=== PATIENT | female | born 1950 | race Caucasian/White ===

== ENCOUNTER 2016-12-31 12:12 | Outpatient (CLI) | payer MEDICARE, OTHER | END 2016-12-31 12:13 | disposition critical access hospital (66) | DX: R06.02 Shortness of breath (principal); R53.1 Weakness | CPT/HCPCS: A0425; A0429 ==

== ENCOUNTER 2016-12-31 12:25 | Inpatient (IN) | payer MEDICARE, OTHER ==
[2016-12-31 13:04] LABS: BASOPHILS # (AUTO) 0.2 10^3/uL (0.0-0.1); EOSINOPHILS # (AUTO) 0.4 10^3/uL (0.0-0.7); EOSINOPHILS % (AUTO) 2.6 %; HCT - HEMATOCRIT 37.4 % (37.0-47.0); HGB - HEMOGLOBIN 11.6 g/dL (12.0-16.0); LYMPHOCYTES % (AUTO) 6.4 %; MEAN CORPUSCULAR HEMOGLOBIN 21.6 pg (27.0-31.0); MEAN CORPUSCULAR HGB CONC 30.9 g/dL (32.0-36.0); MEAN CORPUSCULAR VOLUME 70.1 fL (81.0-99.0); MEAN PLATELET VOLUME 7.8 fL (7.9-10.8); MONOCYTES # (AUTO) 0.7 10^3/uL (0.0-1.0); MONOCYTES % (AUTO) 4.5 %; NEUTROPHILS # (AUTO) 13.7 10^3/uL (1.5-6.6); NEUTROPHILS % (AUTO) 85.5 %; RED BLOOD COUNT 5.34 10^6/uL (4.20-5.40); RED CELL DISTRIBUTION WIDTH 23.8 % (12.0-15.0)
[2016-12-31 13:15] LABS: BILIRUBIN,TOTAL 0.9 mg/dL (0.2-1.0); CALCIUM 9.4 mg/dL (8.5-10.3); CREATININE 1.2 mg/dL (0.4-1.0); POTASSIUM 3.9 mmol/L (3.5-5.0); TOTAL PROTEIN 7.6 g/dL (6.7-8.2)
[2016-12-31 13:29] LABS: PLATELET ESTIMATE, MANUAL NORMAL (130-450,000) (NORMAL); PLATELET MORPHOLOGY A (NORMAL)
--- NOTE | 2016-12-31 13:37 | ED Physician Documentation ---
PD HPI URI - Stated complaint Stated Complaint: WEAKNESS - Chief complaint Chief Complaint: General - History obtained from History obtained from: Patient, Friend - History of Present Illness Timing - onset: How many weeks ago (2) Timing duration: Weeks (2) Timing details: Gradual onset Associated symptoms: Fever, Chills, Nasal congestion, Rhinorrhea, Dry cough, Dyspnea. No: Sore throat, Swollen nodes, Hemoptysis, Chest pain Contributing factors: Sick contact, COPD / asthma Improves by: Rest Worsened by: Activity, Breathing Similar symptoms before: No diagnosis Recently seen: Clinic (seen in clinic yesterday, [facility]) Review of Systems Ten Systems: 10 systems reviewed and negative Constitutional: reports: Fever, Chills Nose: reports: Rhinorrhea / runny nose, Congestion Throat: denies: Sore throat Cardiac: denies: Chest pain / pressure Respiratory: reports: Dyspnea, Cough. denies: Hemoptysis, Wheezing GI: denies: Abdominal Pain, Nausea, Vomiting, Diarrhea Skin: denies: Rash Musculoskeletal: denies: Neck pain, Back pain Neurologic: denies: Focal weakness, Numbness, Headache PD PAST MEDICAL HISTORY - Past Medical History Past Medical History: Yes Respiratory: Asthma Neuro: Multiple sclerosis Endocrine/Autoimmune: Other - Past Surgical History Past Surgical History: No - Present Medications Home Medications: Ambulatory Orders Medication Instructions Recorded Confirmed Allopurinol 300 mg PO DAILY 12/31/16 12/31/16 Dexlansoprazole [Dexilant] 60 mg PO DAILY 12/31/16 12/31/16 Escitalopram Oxalate [Lexapro] 20 mg PO DAILY 12/31/16 12/31/16 Fluticasone/Salmeterol [Advair 1 each IH BID 12/31/16 12/31/16 250-50 Diskus] Fluticasone/Salmeterol [Advair 1 puffs INH BID 12/31/16 12/31/16 250-50 Diskus] Linaclotide [Linzess] 145 mcg PO DAILY 12/31/16 12/31/16 Montelukast [Singulair] 10 mg PO QPM 12/31/16 12/31/16 Naratriptan HCl [Amerge] 2.5 mg PO ONCE PRN 12/31/16 12/31/16 Tolterodine Tartrate [Tolterodine 4 mg PO DAILY 12/31/16 12/31/16 Tartrate ER] - Allergies Allergies/Adverse Reactions: Allergies Allergy/AdvReac Type Severity Reaction Status Date / Time erythromycin base Allergy Unknown Verified 12/31/16 16:06 lidocaine Allergy Unknown Verified 12/31/16 16:02 NSAIDS (Non-Steroidal Allergy Unknown Verified 12/31/16 16:02 Anti-Inflamma orphenadrine Allergy Unknown Verified 12/31/16 16:02 Penicillins Allergy Edema Verified 12/31/16 12:33 Sulfa (Sulfonamide Allergy Unknown Verified 12/31/16 16:02 Antibiotics) - Social History Does the pt smoke?: No Smoking Status: Never smoker Does the pt drink ETOH?: No Does the pt have substance abuse?: No - Immunizations Immunizations: TDAP >10years/unknown - POLST Patient has POLST: No PD ED PE NORMAL - Vitals Vital signs reviewed: Yes - General General: Alert and oriented X 3, No acute distress - HEENT HEENT: PERRL, Ears normal, Moist mucous membranes, Pharynx benign - Neck Neck: Supple, no meningeal sign - Cardiac Cardiac: RRR - Respiratory Respiratory: No respiratory distress, Other (rhonchi B) - Abdomen Abdomen: Soft, Non tender, Non distended - Derm Derm: Warm and dry - Extremities Extremities: No edema, No calf tenderness / cord - Neuro Neuro: Alert and oriented X 3 - Psych Psych: Normal mood, Normal affect Results - Vitals Vitals: Vital Signs - 24 hr 12/31/16 12/31/16 12:26 13:00 Temperature 39.4 C H 39.3 C H Heart Rate 97 Heart Rate [ 96 Brachial] Respiratory 16 16 Rate Blood Pressure 122/40 L Blood Pressure 110/65 [Right Brachial artery] O2 Saturation 97 96 Oxygen O2 Source Nasal cannula - Labs Labs: Laboratory Tests 12/31/16 12/31/16 12/31/16 12:48 12:48 12:48 WBC 16.0 H RBC 5.34 Hgb 11.6 L Hct 37.4 MCV 70.1 L MCH 21.6 L MCHC 30.9 L RDW 23.8 H Plt Count 452 H MPV 7.8 L Neut # 13.7 H Lymph # 1.0 L Divide # 0.7 Eos # 0.4 Baso # 0.2 H Absolute Nucleated RBC 0.00 Nucleated RBCs 0.0 Manual Slide Review Indicated Platelet Estimate NORMAL (130-450,000) Platelet Morphology A RBC Morph Micro Appear 1+ OVALOCYTES Sodium 134 L Potassium 3.9 Chloride 97 L Carbon Dioxide 26 Anion Gap 11.0 BUN 8 Creatinine 1.2 H Estimated GFR (MDRD) 45 L Glucose 98 Lactic Acid 0.7 Calcium 9.4 Total Bilirubin 0.9 AST 20 ALT 13 Alkaline Phosphatase 69 Total Protein 7.6 Albumin 3.8 Globulin 3.8 Albumin/Globulin Ratio 1.0 Lipase 20 L - Rads (name of study) cxr Radiology: Prelim report reviewed, EMP read contemporaneously, See rad report ( Bibasilar infiltrates right worse than left) PD MEDICAL DECISION MAKING - ED course Complexity details: reviewed results, re-evaluated patient, considered differential, d/w patient, d/w family ED course: Patient is a 66-year-old female who presents to the emergency department with fever, coughing, hypoxia. Found to have bilateral pneumonia. Will place on IV antibiotics and admit the patient for further care. Discussed the case with Dr. Taylor, hospitalist who accepts. Patient is ill-appearing and did receive IV fluids here. This document was made in part using voice recognition software. While efforts are made to proofread this document, sound alike and grammatical errors may occur. Departure - Departure Disposition: 64 [facility] DC/Xfer Clinical Impression: Hypoxia Pneumonia Qualifiers: Pneumonia type: due to unspecified organism Laterality: right Lung location: lower lobe of lung Qualified Code(s): J18.1 - Lobar pneumonia, unspecified organism Condition: Stable Discharge Date/Time: 12/31/16 14:51
[2016-12-31] MEDS ORDERED: cefTRIAXone 1 GM in SODIUM CHLORIDE 0.9% MINIBAG 100 ML IV STA (13:38)
[2016-12-31] MEDS ORDERED: SODIUM CHLORIDE 0.9% 1,000 ML IV ONE ×2 (13:39)
[2016-12-31] MEDS ORDERED: AZITHROMYCIN INJ 500 MG in SODIUM CHLORIDE 0.9% 250 ML IV STA (13:39)
--- NOTE | 2016-12-31 13:46 | XRAY Preliminary Report ---
Exam: XR Chest 2 View PA/LAT IMPRESSION: Bibasilar infiltrates, right more so than left. [facility] SITE ID: [id number]
[2016-12-31] MEDS ORDERED: ONDANSETRON 4 MG/2 ML VIAL IVP PRN (13:54)
[2016-12-31] MEDS ORDERED: ZOLPIDEM 5 MG TABLET PO PRN (13:54)
[2016-12-31] MEDS ORDERED: PROCHLORPERAZINE 10 MG/2 ML VIAL IVP PRN (13:54)
[2016-12-31] MEDS ORDERED: PROMETHAZINE 25 MG/1 ML VIAL IM PRN (13:54)
[2016-12-31] MEDS ORDERED: ACETAMINOPHEN 325 MG TABLET PO STA (14:01)
--- NOTE | 2016-12-31 14:07 | XRAY Report ---
EXAM: CHEST RADIOGRAPHY EXAM DATE: 12/31/2016 01:20 PM. CLINICAL HISTORY: Cough, fever, generalized weakness for 2 weeks. COMPARISON: 04/09/2008. TECHNIQUE: 2 views. FINDINGS: Lungs/Pleura: Reticular-nodular infiltrates now seen in both anterior lung bases as well as within th e basilar segments of the right lower lobe. Normal lung volumes. No effusion, vascular congestion or pneumothorax. Mediastinum: Heart and mediastinal contours are unremarkable. Other: Prior right breast surgery. IMPRESSION: Bibasilar infiltrates, right more so than left. [facility] Referring Provider Line: [phone] SITE ID: [id number]
--- NOTE | 2016-12-31 15:31 | HISTORY & PHYSICAL EXAMINATION ---
Chief Complaint - Chief Complaint Chief Complaint: Generalized Weakness History of Present Illness - Admitted From Admitted From:: Emergency Department - History Obtained From Records Reviewed: Yes History obtained from: Patient and her sister Exam Limitations: None - History of Present Illness HPI Comment/Other: Patient is a 66-year-old female with a past medical history significant for polycythemia there, asthma, paresthesias with possible multiple sclerosis, gout , depression and migraines who presents to the emergency department with a chief complaint of generalized weakness. The patient has not been feeling well for over 2 weeks now. She states that she her symptoms first started with generalized weakness and fatigue. She states that over the last 10 days she's been having cough and increasing shortness of breath. She states that she did go to the emergency department at [facility] one week ago and was told that she had sinusitis. She was not given any antibiotics and since returning home has become increasingly weak to the point where she is not even able to get out of her bed in the morning. She also admits to feeling warm although she did not check her temperature to see if she had a fever at home. Her sister states that she has had very poor appetite and has not been eating the last couple of days. The patient otherwise denies any headaches blurred vision runny nose sore throat nasal congestion or chest pain. On presentation to the emergency department the patient was febrile with a temperature of 39.4, she was hypoxic with O2 sat below 88% requiring 4 L of oxygen, she was also tachycardic with heart rate in the 120s and and lab work revealed a leukocytosis of 16,000 with acute renal failure. Patient's chest x- ray revealed bibasilar infiltrates right more so than left. Patient was admitted to the hospital for sepsis secondary to community acquired pneumonia. Review of Systems - Constitutional Constitutional: reports: Fatigue, Fever, Malaise, Weakness, Poor appetite. denies: Chills, Diaphoresis, Night sweats, Weight gain, Weight loss - Eyes Eyes: denies: Pain, Irritation, Amaurosis, Blurred vision, Spots in vision, Field loss, Vision loss, Dipolpia, Corrective lenses, Other - Ears, Nose & Throat Ears, Nose & Throat: denies: Ear pain, Hearing loss, Hearing aids, Tinnitus, Vertigo, Nasal pain, Nasal discharge, Nosebleeds, Nasal obstruction, Nasal congestion, Postnasal drainage, Dentures, Sore throat, Hoarseness, Mouth lesions , Bleeding gums, Dental decay, Dental pain, Other - Cardiovascular Cariovascular: reports: Exertional dyspnea. denies: Irregular heart rate, Palpitations, Chest pain, Edema, Lightheadedness, Syncope, Orthopnea - Respiratory Respiratory: reports: Cough, Sputum production, Wheezing, SOB with exertion. denies: Snoring, Hemoptysis, Orthopnea, SOB at rest - Gastrointestinal Gastrointestinal: denies: Abdominal pain, Abdominal distention, Constipation, Diarrhea, Black stools, Nausea, Vomiting, Coffee grounds emesis - Genitourinary Genitourinary: denies: Dysuria, Frequency, Urgency, Hematuria, Incontinence - Musculoskeletal Musculoskeletal: denies: Muscle pain, Back pain, Muscle aches, Stiffness, Limited range of motion, Muscle weakness - Integumentary Integumentary: denies: Rash, Pruritis, Lesions, Dryness - Neurological Neurological: reports: General weakness, Numbness (fingers and feet). denies: Focal weakness, Headache, Dizziness, Memory problems, Abnormal gait, Seizures - Psychiatric Psychiatric: reports: Depression. denies: Anxiety, Suicidal, Delusions - Endocrine Endocrine: denies: Polyuria, Polydypsia, Polyphagia, Intolerance to cold - Hematologic/Lymphatic Hematologic/Lymphatic: denies: Anemia, Bruising, Petechiae History - Past Medical History Respiratory: reports: Asthma Neuro: reports: Multiple sclerosis (parasthesias being worked up for MS), Other (Migraines) Endocrine/Autoimmune: reports: Other : reports: Incontinence Psych: reports: Depression Musculoskeletal: reports: Gout MRSA Hx?: No Other Past Medical History: Polycythema Vera - Family & Social History Family History: Mother: Cancer (Breast Cancer), Father: [place], Sister: Cancer Living arrangement: At home Living Situation: With family Social History Notes: Patient lives in [place] with her sister. She is . She has one daughter who lives in [place] and 2 grandkids. - Substance History Use: Uses substance without health or social issues: NONE Abuse: Recurrent use of substance despite neg consequences: NONE Dependence: Experiences withdrawal or developed tolerances: NONE - POLST Patient has POLST: No POLST Status: Full Code Meds/Allgy - Home Medications Home Medications: Ambulatory Orders Medication Instructions Recorded Confirmed Allopurinol 300 mg PO DAILY 12/31/16 12/31/16 Allopurinol 300 mg PO DAILY 12/31/16 12/31/16 Dexlansoprazole [Dexilant] 60 mg PO DAILY 12/31/16 12/31/16 Dexlansoprazole [Dexilant] 60 mg PO DAILY 12/31/16 12/31/16 Escitalopram Oxalate [Lexapro] 20 mg PO DAILY 12/31/16 12/31/16 Escitalopram [Lexapro] 20 mg PO DAILY 12/31/16 12/31/16 Fluticasone/Salmeterol [Advair 1 each IH BID 12/31/16 12/31/16 250-50 Diskus] Fluticasone/Salmeterol [Advair 1 puffs INH BID 12/31/16 12/31/16 250-50 Diskus] Linaclotide [Linzess] 145 mcg PO DAILY 12/31/16 12/31/16 Montelukast [Singulair] 10 mg PO QPM 12/31/16 12/31/16 Naratriptan HCl [Amerge] 2.5 mg PO BID PRN MDD 2 tabs 12/31/16 12/31/16 Nystatin/Triamcin 15 gm TP BID 12/31/16 12/31/16 [Nystatin-Triamcinolone Cream] Tolterodine Tartrate [Tolterodine 4 mg PO DAILY 12/31/16 12/31/16 Tartrate ER] - Allergies Allergies/Adverse Reactions: Allergies Allergy/AdvReac Type Severity Reaction Status Date / Time Penicillins Allergy Edema Verified 12/31/16 12:33 sulfamethoxazole Allergy Unknown Verified 12/31/16 12:33 [From ] trimethoprim [From ] Allergy Unknown Verified 12/31/16 12:33 Exam - Vital Signs Reviewed Vital Signs: Yes Vital Signs: Vital Signs x48h Temp Pulse Resp BP Pulse Ox 12/31/16 14:43 38.3 C H 92 18 127/52 L 92 - Physical Exam General Appearance: positive: Moderate distress (Appears toxic looking, very weak, can barely talk), Other (very drowsy) Eyes Bilateral: positive: Normal inspection, PERRL, EOMI, No lid inflammation, Conjunctivae nml, No scleral icterus ENT: positive: ENT inspection nml, Pharynx nml, Dry mucous membranes. negative : Purulent nasal drainage, Pharyngeal erythema, Oral lesions Neck: positive: Nml inspection, Thyroid nml, No JVD, Trachea midline. negative : Thyromegaly, Lymphadenopathy (R), Lymphadenopathy (L), Stiff neck, Carotid bruit Respiratory: positive: Chest non-tender, Wheezes (scattered), Rhonchi (bases bilateral) Cardiovascular: positive: No murmur, No gallop, Tachycardia Peripheral Pulses: positive: 2+ Abdomen: positive: Non-tender, No organomegaly, Nml bowel sounds, No distention. negative: Guarding, Rebound Back: positive: Nml inspection. negative: CVA tenderness (R), CVA tenderness (L ) Skin: positive: Color nml, No rash, Warm Extremities: positive: Non-tender, Full ROM, Nml appearance, No pedal edema Neurologic/Psychiatric: positive: Oriented x3, CN's nml (2-12), Motor nml, Sensation nml, Depressed mood/affect, Other (Generalized Weakness) Conclusion/Plan - Problem List (1) Sepsis Conclusion/Plan: Presented with fever over 39, tachycardia of 120s, hypoxia, leukocytosis 16K and renal insufficiency Lactate normal and BP stable Patients source is likely pneumonia CXR showed bibasilar infiltrates worse on the right Plan: IVFs IV abx: Ceftriaxone and Azithromycin for CAP coverage Blood cx x 2 Monitor closely on Med/Surg (2) CAP (community acquired pneumonia) Conclusion/Plan: Presented with generalized weakness, cough, shortness of air and had fever, leukocytosis and hypoxia CXR showed bibasilar pneumonia Plan: IV abx with ceftriaxone and azithromycin Wean O2 Duonebs prn Continue asthma meds Blood cx (3) BRANDT (acute kidney injury) Conclusion/Plan: Manager Foreign 1.3 on presentation No baseline customer service rep but appears dry and likely has pre-renal azotemia secondary to sepsis and poor PO intake Plan IVFs Avoid nephrotoxic agents Monitor customer service rep (4) Hyponatremia Conclusion/Plan: Hypovolemic hyponatremia likely secondary to infection and dehydration Given IVFs Monitor Na (5) Asthma Conclusion/Plan: Does not appear to be in exacerbation Hypoxic secondary to pneumonia Only mild wheezes Plan Duonebs prn ICS and LABA nebs O2 support Abx No need for steroids at this point Continue home singulair dose (6) Depression Conclusion/Plan: Continue lexapro Depressed but not suicidal (7) Prophylactic use of low molecular weight heparin for venous thromboembolism Conclusion/Plan: On lovenox daily - Lab Results Lab results reviewed: Yes Fish Bones: 12/31/16 12:48 12/31/16 12:48 - Diagnostic Imaging Results Diagnostic Imaging Results: positive: Final report reviewed - EKG Results EKG Interpreted Independently: Yes Issues/Core Measures - Anticipated LOS Anticipated Stay Length: 2 or more midnights - DVT/VTE - Prophylaxis VTE/DVT Prophylaxis med ordered at admit?: Yes
[2016-12-31] MEDS: SODIUM CHLORIDE FLUSH 0.9% 10 ML SYRINGE IVP SCH (15:36)
[2016-12-31] MEDS: AZITHROMYCIN INJ 500 MG in SODIUM CHLORIDE 0.9% 250 ML IV SCH (16:09)
[2016-12-31] MEDS: cefTRIAXone 2 GM in SODIUM CHLORIDE 0.9% MINIBAG 100 ML IV SCH (17:16)
[2016-12-31] MEDS: SODIUM CHLORIDE 0.9% 1,000 ML IV SCH (17:16)
[2016-12-31] MEDS: SACCHAROMYCES BOULARDII 250 MG CAPSULE PO SCH (17:18)
[2016-12-31] MEDS: BUDESONIDE 0.5 MG/2 ML NEB INH SCH (20:00)
[2016-12-31] MEDS: FORMOTEROL FUMARATE NEB 20 MCG/2 ML INH SCH (20:00)
[2016-12-31] MEDS: ACETAMINOPHEN 325 MG TABLET PO PRN (21:38)
[2016-12-31] MEDS: MONTELUKAST 10 MG TABLET PO SCH (21:38)
[2017-01-01] MEDS: ACETAMINOPHEN 325 MG TABLET PO PRN (04:07)
[2017-01-01] MEDS: SODIUM CHLORIDE 0.9% 1,000 ML IV SCH ×3 (04:09→21:41)
[2017-01-01] MEDS: oxyCODONE 5 MG TABLET PO PRN ×3 (04:11→18:25)
[2017-01-01 06:23] LABS: CALCIUM 8.4 mg/dL (8.5-10.3); CREATININE 0.8 mg/dL (0.4-1.0); POTASSIUM 3.5 mmol/L (3.5-5.0)
[2017-01-01 06:26] LABS: BASOPHILS # (AUTO) 0.2 10^3/uL (0.0-0.1); BASOPHILS % (AUTO) 1.2 %; EOSINOPHILS # (AUTO) 0.2 10^3/uL (0.0-0.7); EOSINOPHILS % (AUTO) 1.6 %; HCT - HEMATOCRIT 35.6 % (37.0-47.0); HGB - HEMOGLOBIN 10.5 g/dL (12.0-16.0); LYMPHOCYTES % (AUTO) 6.4 %; MEAN CORPUSCULAR HEMOGLOBIN 21.4 pg (27.0-31.0); MEAN CORPUSCULAR HGB CONC 29.6 g/dL (32.0-36.0); MEAN CORPUSCULAR VOLUME 72.3 fL (81.0-99.0); MEAN PLATELET VOLUME 8.3 fL (7.9-10.8); MONOCYTES % (AUTO) 6.5 %; NEUTROPHILS # (AUTO) 12.8 10^3/uL (1.5-6.6); NEUTROPHILS % (AUTO) 84.3 %; NUCLEATED RED BLOOD CELLS AUTO 0.1 /100WBC; RED BLOOD COUNT 4.93 10^6/uL (4.20-5.40); RED CELL DISTRIBUTION WIDTH 23.6 % (12.0-15.0); UNCORRECTED WHITE BLOOD COUNT 15.2 x10^3/uL; WHITE BLOOD COUNT 15.2 x10^3/uL (4.8-10.8)
[2017-01-01] MEDS: SODIUM CHLORIDE FLUSH 0.9% 10 ML SYRINGE IVP SCH ×3 (06:37→21:32)
[2017-01-01 06:54] LABS: PLATELET ESTIMATE, MANUAL NORMAL (130-450,000) (NORMAL)
[2017-01-01] MEDS: PANTOPRAZOLE 40 MG TABLET PO SCH (07:27)
[2017-01-01] MEDS: ALLOPURINOL 100 MG TABLET PO SCH (08:29)
[2017-01-01] MEDS: TOLTERODINE LA 2 MG CAPSULE PO SCH (08:29)
[2017-01-01] MEDS: ESCITALOPRAM 10 MG TABLET PO SCH (08:29)
[2017-01-01] MEDS: SACCHAROMYCES BOULARDII 250 MG CAPSULE PO SCH ×2 (08:29→17:34)
[2017-01-01] MEDS: ENOXAPARIN 40 MG/0.4 ML SYRINGE SUBQ SCH (08:30)
[2017-01-01] MEDS: POLYETHYLENE GLYCOL 3350 17 GM PACKET PO SCH (08:30)
[2017-01-01] MEDS: cefTRIAXone 2 GM in SODIUM CHLORIDE 0.9% MINIBAG 100 ML IV SCH (08:30)
[2017-01-01] MEDS ORDERED: IPRATROPIUM/ALBUTEROL 3 ML NEB INH ONE (10:00)
[2017-01-01] MEDS: IPRATROPIUM/ALBUTEROL 3 ML NEB INH SCH ×3 (10:12→20:40)
[2017-01-01] MEDS: FORMOTEROL FUMARATE NEB 20 MCG/2 ML INH SCH ×2 (10:12→20:20)
[2017-01-01] MEDS: BUDESONIDE 0.5 MG/2 ML NEB INH SCH ×2 (10:12→20:20)
[2017-01-01] MEDS: AZITHROMYCIN INJ 500 MG in SODIUM CHLORIDE 0.9% 250 ML IV SCH (10:33)
[2017-01-01] MEDS: guaiFENesin 600 MG TABLET PO SCH ×2 (10:39→21:40)
[2017-01-01] MEDS: methylPREDNISolone SUCCINATE 40 MG/ML VIAL IVP SCH ×2 (13:47→21:40)
[2017-01-01] MEDS ORDERED: NARATRIPTAN HCL 2.5 MG PO PRN (17:00)
--- NOTE | 2017-01-01 17:37 | PROVIDER PROGRESS NOTE ---
Assessment/Plan - Problem List (1) Sepsis Assessment/Plan: Presented with fever over 39, tachycardia of 120s, hypoxia, leukocytosis 16K and renal insufficiency Lactate normal and BP stable Patients source is likely pneumonia CXR showed bibasilar infiltrates worse on the right Patient given IVFs and started on IV abx with ceftriaxone and Azithromycin HR improved, fevers subsided, BP stable Resolving (2) CAP (community acquired pneumonia) Conclusion/Plan: Presented with generalized weakness, cough, shortness of air and had fever, leukocytosis and hypoxia CXR showed bibasilar pneumonia Day 2 of Ceftriaxone and Azithro Still on 3L of O2 Lungs sound worse with diffuse wheezing likely asthma exacerbation along with pneumonia WBC mildly improved Wean O2 Improving slowly (3) BRANDT (acute kidney injury) 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 IVFs and 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 engineer improved to 0.8 Resolved (4) Hyponatremia Conclusion/Plan: Hypovolemic hyponatremia likely secondary to infection and dehydration Given IVFs Resolved (5) Asthma Exacerbation Conclusion/Plan: Initially appeared to have only pneumonia but today with diffuse wheezing and still on 3L of O2 appears to be have asthma exacerbation Duonebs ATC x24 hours and prn Start IV Solumedrol TID (6) Depression Conclusion/Plan: Continue lexapro Stable (7) Prophylactic use of low molecular weight heparin for venous thromboembolism Conclusion/Plan: On lovenox daily - Current Meds Current Meds: Current Medications Generic Name Dose Route Start Last Admin Trade Name Freq PRN Reason Stop Dose Admin Acetaminophen 650 mg 12/31/16 13:54 01/01/17 04:07 Tylenol PO 650 mg Q4HR PRN Administration Pain 1 to 4 Albuterol/Ipratropium 3 ml 01/01/17 11:00 01/01/17 14:48 Duoneb INH 01/02/17 11:00 3 ml RTQID ELENA Administration Allopurinol 300 mg 01/01/17 09:00 01/01/17 08:29 Zyloprim PO 300 mg DAILY ELENA Administration Budesonide 0.5 mg 12/31/16 19:00 01/01/17 10:12 Pulmicort INH 0.5 mg RTBID ELENA Administration Enoxaparin Sodium 40 mg 01/01/17 09:00 01/01/17 08:30 Lovenox SUBQ 40 mg DAILY ELENA Administration Escitalopram Oxalate 20 mg 01/01/17 09:00 01/01/17 08:29 Lexapro PO 20 mg DAILY ELENA Administration Formoterol Fumarate 20 mcg 12/31/16 19:00 01/01/17 10:12 Perforomist INH 20 mcg RTBID ELENA Administration Guaifenesin 600 mg 01/01/17 10:00 01/01/17 10:39 Mucinex PO 600 mg BID ELENA Administration Sodium Chloride 1,000 mls @ 100 mls/hr 12/31/16 16:00 01/01/17 15:42 Normal Saline 0.9% IV 100 mls/hr .Q10H ELENA Administration Azithromycin 500 mg/ Sodium 250 mls @ 250 mls/hr 12/31/16 16:00 01/01/17 10:33 Chloride IV 250 mls/hr DAILY@1000 ELENA Administration Ceftriaxone Sodium 2 gm/ 100 mls @ 200 mls/hr 12/31/16 17:00 01/01/17 08:30 Sodium Chloride IV 200 mls/hr DAILY ELENA Administration Methylprednisolone 40 mg 01/01/17 14:00 01/01/17 13:47 Solu-Medrol (40mg Vial) IVP 40 mg TID [facility] Administration Montelukast Sodium 10 mg 12/31/16 21:00 12/31/16 21:38 Singulair PO 10 mg QPM ELENA Administration Oxycodone HCl 5 mg 12/31/16 13:54 01/01/17 13:47 Roxicodone PO 5 mg Q4HR PRN Administration Pain 5 to 7 Oxycodone HCl 10 mg 12/31/16 13:54 01/01/17 04:11 Roxicodone PO 10 mg Q4HR PRN Administration Pain 8 to 10 Pantoprazole Sodium 40 mg 01/01/17 07:00 01/01/17 07:27 Protonix PO 40 mg QDAC [facility] Administration Polyethylene Glycol 17 gm 01/01/17 09:00 01/01/17 08:30 Miralax PO Not Given DAILY [facility] Saccharomyces Boulardii 250 mg 12/31/16 17:00 01/01/17 08:29 Florastor PO 250 mg BIDWM ELENA Administration Sodium Chloride 10 ml 12/31/16 22:00 01/01/17 13:48 Normal Saline Flush 0.9% IVP Not Given Q8HR ELENA Tolterodine Tartrate 4 mg 01/01/17 09:00 01/01/17 08:29 Detrol La PO 4 mg DAILY ELENA Administration - Lab Result Lab results reviewed: Yes Fish Bone Diagrams: 01/01/17 05:54 01/01/17 05:54 - EKG Results EKG Interpreted Independently: Yes - Diagnostic Imaging Results Diagnostic Imaging Results: positive: Final report reviewed - Additional Planning My Orders: My Active Orders 12/31/16 19:00 Budesonide [Pulmicort] 0.5 mg INH RTBID Formoterol Fumarate [Perforomist] 20 mcg INH RTBID 12/31/16 21:00 Montelukast [Singulair] 10 mg PO QPM 01/01/17 09:00 Allopurinol [Zyloprim] 300 mg PO DAILY Escitalopram [Lexapro] 20 mg PO DAILY Tolterodine [Detrol LA] 4 mg PO DAILY 01/01/17 09:11 Resp Teach Nebulizer/MDI [RC] .ONCE 01/01/17 09:55 guaiFENesin/CODEINE [Robitussin AC] 5 ml PO Q6HR PRN 01/01/17 10:00 guaiFENesin [Mucinex] 600 mg PO BID 01/01/17 11:00 Ipratropium/Albuterol [Duoneb] 3 ml INH RTQID 01/01/17 14:00 methylPREDNISolone SUCCINATE [SOLU-Medrol (40MG VIAL)] 40 mg IVP TID 01/01/17 17:00 Patient Own Med [Patient Own Medication] 1 each PO ONCE PRN Plan Discussed with:: Patient, Family (Sister) Time Spent: 31-60 minutes Subjective - Subjective Patient Reports: Feeling Better (Patient feels much better. She is much more alert and lucid. She states she walked to bathroom still short of breath and still requiring O2 but feels better overall. Still feels weak but improving. Denies any fevers overnight.) Nursing Reports: No Complaints Objective Vital Signs: Vital Signs - 24 hr 12/31/16 12/31/16 01/01/17 18:39 20:00 01:00 Temperature 37.2 C 37.4 C Heart Rate 80 Heart Rate [ 80 Brachial] Respiratory 16 17 Rate Blood Pressure 105/65 [Left Brachial artery] O2 Saturation 96 01/01/17 01/01/17 01/01/17 08:00 10:12 13:54 Temperature 36.7 C 37.4 C Heart Rate 97 Heart Rate [ 83 99 Brachial] Respiratory 18 18 20 Rate Blood Pressure 97/59 L 121/69 [Left Brachial artery] O2 Saturation 96 01/01/17 14:40 Temperature Heart Rate 109 H Heart Rate [ Brachial] Respiratory 20 Rate Blood Pressure [Left Brachial artery] O2 Saturation Oxygen O2 Source Nasal cannula I&O (Last 24 Hrs): Intake and Output Totals x24h 12/30/16 12/31/16 01/01/17 23:59 23:59 23:59 Intake Total 1293 4047 Output Total 1200 1100 Balance 93 2947 General: Alert, Oriented x3, Cooperative, No acute distress HEENT: Atraumatic, PERRLA, EOMI, Mucous membr. moist/pink Neck: Supple, No JVD, No thyromegaly, +2 carotid pulse wo bruit, No LAD Lymphatic: no adenopathy Neuro: Alert, Non Focal, CN 2-12 Grossly Intact, Oriented Times 3 Cardiovascular: Regular rate, Normal S1, Normal S2, No murmurs Respiratory: Chest non-tender, Wheezes (Diffuse expiratroy wheezes), Rhonchi ( Bases worse on the right) Abdomen: Normal bowel sounds, Soft, No tenderness, No hepatospenomegaly Extremities: No clubbing, No cyanosis, No edema, Normal pulses, No tenderness/ swelling Skin: No rashes, No breakdown, No significant lesion - Results Results: Laboratory Results WBC 15.2 x10^3/uL (4.8-10.8) H 01/01/17 05:54 RBC 4.93 10^6/uL (4.20-5.40) 01/01/17 05:54 Hgb 10.5 g/dL (12.0-16.0) L 01/01/17 05:54 Hct 35.6 % (37.0-47.0) L 01/01/17 05:54 MCV 72.3 fL (81.0-99.0) L 01/01/17 05:54 MCH 21.4 pg (27.0-31.0) L 01/01/17 05:54 MCHC 29.6 g/dL (32.0-36.0) L 01/01/17 05:54 RDW 23.6 % (12.0-15.0) H 01/01/17 05:54 Plt Count 451 10^3/uL (130-450) H 01/01/17 05:54 MPV 8.3 fL (7.9-10.8) 01/01/17 05:54 Neut # 12.8 10^3/uL (1.5-6.6) H 01/01/17 05:54 Lymph # 1.0 10^3/uL (1.5-3.5) L 01/01/17 05:54 [place] # 1.0 10^3/uL (0.0-1.0) 01/01/17 05:54 Eos # 0.2 10^3/uL (0.0-0.7) 01/01/17 05:54 Baso # 0.2 10^3/uL (0.0-0.1) H 01/01/17 05:54 Absolute Nucleated RBC 0.01 x10^3/uL 01/01/17 05:54 Nucleated RBCs 0.1 /100WBC 01/01/17 05:54 Manual Slide Review Indicated 01/01/17 05:54 Platelet Estimate NORMAL (130-450,000) (NORMAL) 01/01/17 05:54 Platelet Morphology A (NORMAL) 12/31/16 12:48 RBC Morph Micro Appear 1+ ANISOCYTOSIS (NORMAL) 1+ MACROCYTOSIS (NORMAL) 1+ OVALOCYTES (NORMAL) 12/31/16 12:48 RBC Morph Micro Appear 1+ ANISOCYTOSIS (NORMAL) 1+ MACROCYTOSIS (NORMAL) 1+ OVALOCYTES (NORMAL) 12/31/16 12:48 RBC Morph Micro Appear 2+ ANISOCYTOSIS (NORMAL) 1+ POLYCHROMASIA (NORMAL) 1 + OVALOCYTES (NORMAL) 1+ SCHISTOCYTES (NORMAL) 1+ TEARDROP CELLS (NORMAL) 01/01/17 05:54 RBC Morph Micro Appear 2+ ANISOCYTOSIS (NORMAL) 1+ POLYCHROMASIA (NORMAL) 1 + OVALOCYTES (NORMAL) 1+ SCHISTOCYTES (NORMAL) 1+ TEARDROP CELLS (NORMAL) 01/01/17 05:54 RBC Morph Micro Appear 2+ ANISOCYTOSIS (NORMAL) 1+ POLYCHROMASIA (NORMAL) 1 + OVALOCYTES (NORMAL) 1+ SCHISTOCYTES (NORMAL) 1+ TEARDROP CELLS (NORMAL) 01/01/17 05:54 RBC Morph Micro Appear 2+ ANISOCYTOSIS (NORMAL) 1+ POLYCHROMASIA (NORMAL) 1 + OVALOCYTES (NORMAL) 1+ SCHISTOCYTES (NORMAL) 1+ TEARDROP CELLS (NORMAL) 01/01/17 05:54 RBC Morph Micro Appear 2+ ANISOCYTOSIS (NORMAL) 1+ POLYCHROMASIA (NORMAL) 1 + OVALOCYTES (NORMAL) 1+ SCHISTOCYTES (NORMAL) 1+ TEARDROP CELLS (NORMAL) 01/01/17 05:54 Sodium 139 mmol/L (135-145) 01/01/17 05:54 Potassium 3.5 mmol/L (3.5-5.0) 01/01/17 05:54 Chloride 108 mmol/L (101-111) 01/01/17 05:54 Carbon Dioxide 25 mmol/L (21-32) 01/01/17 05:54 Anion Gap 6.0 (6-13) 01/01/17 05:54 BUN 8 mg/dL (6-20) 01/01/17 05:54 Creatinine 0.8 mg/dL (0.4-1.0) 01/01/17 05:54 Estimated GFR (MDRD) 71 (>89) L 01/01/17 05:54 Glucose 109 mg/dL (70-100) H 01/01/17 05:54 Lactic Acid 0.7 mmol/L (0.5-2.2) 12/31/16 12:48 Calcium 8.4 mg/dL (8.5-10.3) L 01/01/17 05:54 Total Bilirubin 0.9 mg/dL (0.2-1.0) 12/31/16 12:48 AST 20 IU/L (10-42) 12/31/16 12:48 ALT 13 IU/L (10-60) 12/31/16 12:48 Alkaline Phosphatase 69 IU/L (42-121) 12/31/16 12:48 Total Protein 7.6 g/dL (6.7-8.2) 12/31/16 12:48 Albumin 3.8 g/dL (3.2-5.5) 12/31/16 12:48 Globulin 3.8 g/dL (2.1-4.2) 12/31/16 12:48 Albumin/Globulin Ratio 1.0 (1.0-2.2) 12/31/16 12:48 Lipase 20 U/L (22-51) L 12/31/16 12:48
[2017-01-01] MEDS: HYDROXYUREA 500 MG CAPSULE PO SCH (20:10)
[2017-01-01] MEDS: SODIUM CHLORIDE FLUSH 0.9% 10 ML SYRINGE IVP PRN (21:40)
[2017-01-01] MEDS: MONTELUKAST 10 MG TABLET PO SCH (21:40)
[2017-01-02] MEDS: SODIUM CHLORIDE 0.9% 1,000 ML IV SCH ×3 (00:47→23:10)
[2017-01-02] MEDS: SODIUM CHLORIDE FLUSH 0.9% 10 ML SYRINGE IVP SCH ×3 (05:48→21:16)
[2017-01-02] MEDS: PANTOPRAZOLE 40 MG TABLET PO SCH (05:48)
[2017-01-02] MEDS: methylPREDNISolone SUCCINATE 40 MG/ML VIAL IVP SCH ×3 (05:48→21:15)
[2017-01-02 06:28] LABS: BASOPHILS # (AUTO) 0.1 10^3/uL (0.0-0.1); EOSINOPHILS % (AUTO) 0.3 %; HGB - HEMOGLOBIN 10.9 g/dL (12.0-16.0); LYMPHOCYTES % (AUTO) 6.6 %; MEAN CORPUSCULAR HEMOGLOBIN 20.9 pg (27.0-31.0); MEAN CORPUSCULAR HGB CONC 28.7 g/dL (32.0-36.0); MEAN CORPUSCULAR VOLUME 72.9 fL (81.0-99.0); MEAN PLATELET VOLUME 8.3 fL (7.9-10.8); MONOCYTES # (AUTO) 0.4 10^3/uL (0.0-1.0); MONOCYTES % (AUTO) 2.6 %; NEUTROPHILS # (AUTO) 13.1 10^3/uL (1.5-6.6); NEUTROPHILS % (AUTO) 89.5 %; RED BLOOD COUNT 5.22 10^6/uL (4.20-5.40); UNCORRECTED WHITE BLOOD COUNT 14.6 x10^3/uL; WHITE BLOOD COUNT 14.6 x10^3/uL (4.8-10.8)
[2017-01-02 06:34] LABS: CALCIUM 9.1 mg/dL (8.5-10.3); CREATININE 0.9 mg/dL (0.4-1.0); POTASSIUM 4.4 mmol/L (3.5-5.0)
[2017-01-02 06:43] LABS: RED CELL DISTRIBUTION WIDTH 24.5 % (12.0-15.0)
[2017-01-02] MEDS: FORMOTEROL FUMARATE NEB 20 MCG/2 ML INH SCH ×2 (07:21→20:01)
[2017-01-02] MEDS: BUDESONIDE 0.5 MG/2 ML NEB INH SCH ×2 (07:21→20:01)
[2017-01-02] MEDS: IPRATROPIUM/ALBUTEROL 3 ML NEB INH SCH ×2 (07:21→11:05)
[2017-01-02] MEDS: POLYETHYLENE GLYCOL 3350 17 GM PACKET PO SCH (08:21)
[2017-01-02] MEDS: ENOXAPARIN 40 MG/0.4 ML SYRINGE SUBQ SCH (08:22)
[2017-01-02] MEDS: guaiFENesin 600 MG TABLET PO SCH ×2 (08:22→21:14)
[2017-01-02] MEDS: cefTRIAXone 2 GM in SODIUM CHLORIDE 0.9% MINIBAG 100 ML IV SCH (08:22)
[2017-01-02] MEDS: ALLOPURINOL 100 MG TABLET PO SCH (08:22)
[2017-01-02] MEDS: SACCHAROMYCES BOULARDII 250 MG CAPSULE PO SCH ×2 (08:22→16:43)
[2017-01-02] MEDS: ESCITALOPRAM 10 MG TABLET PO SCH (08:23)
[2017-01-02] MEDS: TOLTERODINE LA 2 MG CAPSULE PO SCH (08:23)
[2017-01-02] MEDS: AZITHROMYCIN INJ 500 MG in SODIUM CHLORIDE 0.9% 250 ML IV SCH (10:07)
--- NOTE | 2017-01-02 10:55 | PROVIDER PROGRESS NOTE ---
Assessment/Plan - Problem List (1) Sepsis Assessment/Plan: resented with fever over 39, tachycardia of 120s, hypoxia, leukocytosis 16K and renal insufficiency Lactate normal and BP stable Patients source is likely pneumonia CXR showed bibasilar infiltrates worse on the right Patient given IVFs and started on IV abx with ceftriaxone and Azithromycin HR improved, fevers subsided, BP stable Blood cx negative Resolved (2) CAP (community acquired pneumonia) Conclusion/Plan: Presented with generalized weakness, cough, shortness of air and had fever, leukocytosis and hypoxia CXR showed bibasilar pneumonia Day 3 of Ceftriaxone and Azithro Down to 2L still a little hypoxic on RA but improving Lungs sound better today with mild wheezes WBC improving slowly Wean O2 Improving (3) BRANDT (acute kidney injury) 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 0.9 Resolved (4) Hyponatremia Conclusion/Plan: Hypovolemic hyponatremia likely secondary to infection and dehydration Given IVFs Resolved (5) Asthma Exacerbation Conclusion/Plan: Initially appeared to have only pneumonia but then had diffuse wheezing and hypoxia which appeared to be asthma exacerbation On IV solumedrol, Duonebs ATC and prn and monteleukast Wheezing improving Will switch to PO steroids tomorrow (6) Depression Conclusion/Plan: Continue lexapro Stable (7) Migraine Conclusion/Plan: Bad migraine headache yesterday took home triptan and oxycodone better this am but having aura this am Continue triptan prn (8) Prophylactic use of low molecular weight heparin for venous thromboembolism Conclusion/Plan: On lovenox daily - Current Meds Current Meds: Current Medications Generic Name Dose Route Start Last Admin Trade Name Gerri PRN Reason Stop Dose Admin Acetaminophen 650 mg 12/31/16 13:54 01/01/17 04:07 Tylenol PO 650 mg Q4HR PRN Administration Pain 1 to 4 Albuterol/Ipratropium 3 ml 01/01/17 11:00 01/02/17 07:21 Duoneb INH 01/02/17 11:00 3 ml RTQID ELENA Administration Allopurinol 300 mg 01/01/17 09:00 01/02/17 08:22 Zyloprim PO 300 mg DAILY ELENA Administration Budesonide 0.5 mg 12/31/16 19:00 01/02/17 07:21 Pulmicort INH 0.5 mg RTBID ELENA Administration Enoxaparin Sodium 40 mg 01/01/17 09:00 01/02/17 08:22 Lovenox SUBQ 40 mg DAILY ELENA Administration Escitalopram Oxalate 20 mg 01/01/17 09:00 01/02/17 08:23 Lexapro PO 20 mg DAILY ELENA Administration Formoterol Fumarate 20 mcg 12/31/16 19:00 01/02/17 07:21 Perforomist INH 20 mcg RTBID ELENA Administration Guaifenesin 600 mg 01/01/17 10:00 01/02/17 08:22 Mucinex PO 600 mg BID ELENA Administration Hydroxyurea 500 mg 01/01/17 19:00 01/01/17 20:10 Hydrea PO 500 mg MoWeFr@0900 ELENA Administration Sodium Chloride 1,000 mls @ 100 mls/hr 12/31/16 16:00 01/02/17 00:47 Normal Saline 0.9% IV 100 mls/hr .Q10H ELENA Administration Azithromycin 500 mg/ Sodium 250 mls @ 250 mls/hr 12/31/16 16:00 01/02/17 10:07 Chloride IV 250 mls/hr DAILY@1000 ELENA Administration Ceftriaxone Sodium 2 gm/ 100 mls @ 200 mls/hr 12/31/16 17:00 01/02/17 08:22 Sodium Chloride IV 200 mls/hr DAILY ELENA Administration Methylprednisolone 40 mg 01/01/17 14:00 01/02/17 05:48 Solu-Medrol (40mg Vial) IVP 40 mg TID ELENA Administration Montelukast Sodium 10 mg 12/31/16 21:00 01/01/17 21:40 Singulair PO 10 mg QPM ELENA Administration Oxycodone HCl 5 mg 12/31/16 13:54 01/01/17 13:47 Roxicodone PO 5 mg Q4HR PRN Administration Pain 5 to 7 Oxycodone HCl 10 mg 12/31/16 13:54 01/01/17 18:25 Roxicodone PO 10 mg Q4HR PRN Administration Pain 8 to 10 Pantoprazole Sodium 40 mg 01/01/17 07:00 01/02/17 05:48 Protonix PO 40 mg QDAC ELENA Administration Polyethylene Glycol 17 gm 01/01/17 09:00 01/02/17 08:21 Miralax PO 17 gm DAILY ELENA Administration Saccharomyces Boulardii 250 mg 12/31/16 17:00 01/02/17 08:22 Florastor PO 250 mg BIDWM ELENA Administration Sodium Chloride 10 ml 12/31/16 13:54 01/01/17 21:40 Normal Saline Flush 0.9% IVP 10 ml PRN PRN Administration NEEDED PER PROVIDER ORDERS Sodium Chloride 10 ml 12/31/16 22:00 01/02/17 05:48 Normal Saline Flush 0.9% IVP 10 ml Q8HR ELENA Administration Tolterodine Tartrate 4 mg 01/01/17 09:00 01/02/17 08:23 Detrol La PO 4 mg DAILY ELENA Administration - Lab Result Lab results reviewed: Yes Fish Bone Diagrams: 01/02/17 05:42 01/02/17 05:42 - EKG Results EKG Interpreted Independently: Yes - Diagnostic Imaging Results Diagnostic Imaging Results: positive: Final report reviewed - Additional Planning Condition/Complexity: Improved My Orders: My Active Orders 01/01/17 09:55 guaiFENesin/CODEINE [Robitussin AC] 5 ml PO Q6HR PRN 01/01/17 10:00 guaiFENesin [Mucinex] 600 mg PO BID 01/01/17 11:00 Ipratropium/Albuterol [Duoneb] 3 ml INH RTQID 01/01/17 14:00 methylPREDNISolone SUCCINATE [SOLU-Medrol (40MG VIAL)] 40 mg IVP TID 01/01/17 19:00 Hydroxyurea [Hydrea] 500 mg PO MoWeFr@0900 Plan Discussed with:: Patient Time Spent: 31-60 minutes Subjective - Subjective Patient Reports: Feeling Better (Still short of breath with exertion and weak but feels much better than last night since her headache has resolved. She had no fevers overnight and denies any chest pain. She continues to have cough.) Nursing Reports: No Complaints Objective Vital Signs: Vital Signs - 24 hr 01/01/17 01/01/17 01/01/17 13:54 14:40 17:29 Temperature 37.4 C 37.2 C Heart Rate 109 H Heart Rate [ 99 99 Brachial] Respiratory 20 20 18 Rate Blood Pressure 121/69 153/75 H [Left Brachial artery] O2 Saturation 96 93 01/01/17 01/02/17 01/02/17 20:20 00:05 07:23 Temperature 36.5 C Heart Rate 98 95 Heart Rate [ 83 Brachial] Respiratory 20 18 20 Rate Blood Pressure 105/60 [Left Brachial artery] O2 Saturation 94 01/02/17 09:10 Temperature 36.5 C Heart Rate Heart Rate [ 97 Brachial] Respiratory 20 Rate Blood Pressure 103/65 [Left Brachial artery] O2 Saturation 96 Oxygen O2 Source Nasal cannula I&O (Last 24 Hrs): Intake and Output Totals x24h 12/31/16 01/01/17 01/02/17 23:59 23:59 23:59 Intake Total 1293 5331 1459 Output Total 1200 2400 1000 Balance 93 2931 459 General: Alert, Oriented x3, Cooperative, No acute distress HEENT: Atraumatic, PERRLA, EOMI, Mucous membr. moist/pink Neck: Supple, No JVD, No thyromegaly, +2 carotid pulse wo bruit, No LAD Lymphatic: no adenopathy Neuro: Alert, Non Focal, CN 2-12 Grossly Intact, Oriented Times 3 Cardiovascular: Regular rate, Normal S1, Normal S2, No murmurs Respiratory: Chest non-tender, No respiratory distress, Wheezes (scattered, improved, expiratory), Rhonchi (bases bilaterally) Abdomen: Normal bowel sounds, Soft, No tenderness, No hepatospenomegaly, No masses Extremities: No clubbing, No cyanosis, No edema, Normal pulses, No tenderness/ swelling Skin: No rashes, No breakdown, No significant lesion - Results Results: Laboratory Results WBC 14.6 x10^3/uL (4.8-10.8) H 01/02/17 05:42 RBC 5.22 10^6/uL (4.20-5.40) 01/02/17 05:42 Hgb 10.9 g/dL (12.0-16.0) L 01/02/17 05:42 Hct 38.0 % (37.0-47.0) 01/02/17 05:42 MCV 72.9 fL (81.0-99.0) L 01/02/17 05:42 MCH 20.9 pg (27.0-31.0) L 01/02/17 05:42 MCHC 28.7 g/dL (32.0-36.0) L 01/02/17 05:42 RDW 24.5 % (12.0-15.0) H 01/02/17 05:42 Plt Count 449 10^3/uL (130-450) 01/02/17 05:42 MPV 8.3 fL (7.9-10.8) 01/02/17 05:42 Neut # 13.1 10^3/uL (1.5-6.6) H 01/02/17 05:42 Lymph # 1.0 10^3/uL (1.5-3.5) L 01/02/17 05:42 [place] # 0.4 10^3/uL (0.0-1.0) 01/02/17 05:42 Eos # 0.0 10^3/uL (0.0-0.7) 01/02/17 05:42 Baso # 0.1 10^3/uL (0.0-0.1) 01/02/17 05:42 Absolute Nucleated RBC 0.01 x10^3/uL 01/02/17 05:42 Nucleated RBCs 0.0 /100WBC 01/02/17 05:42 Manual Slide Review Indicated 01/01/17 05:54 Platelet Estimate NORMAL (130-450,000) (NORMAL) 01/01/17 05:54 Platelet Morphology A (NORMAL) 12/31/16 12:48 RBC Morph Micro Appear 1+ ANISOCYTOSIS (NORMAL) 1+ MACROCYTOSIS (NORMAL) 1+ OVALOCYTES (NORMAL) 12/31/16 12:48 RBC Morph Micro Appear 1+ ANISOCYTOSIS (NORMAL) 1+ MACROCYTOSIS (NORMAL) 1+ OVALOCYTES (NORMAL) 12/31/16 12:48 RBC Morph Micro Appear 2+ ANISOCYTOSIS (NORMAL) 1+ POLYCHROMASIA (NORMAL) 1 + OVALOCYTES (NORMAL) 1+ SCHISTOCYTES (NORMAL) 1+ TEARDROP CELLS (NORMAL) 01/01/17 05:54 RBC Morph Micro Appear 2+ ANISOCYTOSIS (NORMAL) 1+ POLYCHROMASIA (NORMAL) 1 + OVALOCYTES (NORMAL) 1+ SCHISTOCYTES (NORMAL) 1+ TEARDROP CELLS (NORMAL) 01/01/17 05:54 RBC Morph Micro Appear 2+ ANISOCYTOSIS (NORMAL) 1+ POLYCHROMASIA (NORMAL) 1 + OVALOCYTES (NORMAL) 1+ SCHISTOCYTES (NORMAL) 1+ TEARDROP CELLS (NORMAL) 01/01/17 05:54 RBC Morph Micro Appear 2+ ANISOCYTOSIS (NORMAL) 1+ POLYCHROMASIA (NORMAL) 1 + OVALOCYTES (NORMAL) 1+ SCHISTOCYTES (NORMAL) 1+ TEARDROP CELLS (NORMAL) 01/01/17 05:54 RBC Morph Micro Appear 2+ ANISOCYTOSIS (NORMAL) 1+ POLYCHROMASIA (NORMAL) 1 + OVALOCYTES (NORMAL) 1+ SCHISTOCYTES (NORMAL) 1+ TEARDROP CELLS (NORMAL) 01/01/17 05:54 Sodium 140 mmol/L (135-145) 01/02/17 05:42 Potassium 4.4 mmol/L (3.5-5.0) 01/02/17 05:42 Chloride 107 mmol/L (101-111) 01/02/17 05:42 Carbon Dioxide 26 mmol/L (21-32) 01/02/17 05:42 Anion Gap 7.0 (6-13) 01/02/17 05:42 BUN 10 mg/dL (6-20) 01/02/17 05:42 Creatinine 0.9 mg/dL (0.4-1.0) 01/02/17 05:42 Estimated GFR (MDRD) 62 (>89) L 01/02/17 05:42 Glucose 155 mg/dL (70-100) H 01/02/17 05:42 Lactic Acid 0.7 mmol/L (0.5-2.2) 12/31/16 12:48 Calcium 9.1 mg/dL (8.5-10.3) 01/02/17 05:42 Total Bilirubin 0.9 mg/dL (0.2-1.0) 12/31/16 12:48 AST 20 IU/L (10-42) 12/31/16 12:48 ALT 13 IU/L (10-60) 12/31/16 12:48 Alkaline Phosphatase 69 IU/L (42-121) 12/31/16 12:48 Total Protein 7.6 g/dL (6.7-8.2) 12/31/16 12:48 Albumin 3.8 g/dL (3.2-5.5) 12/31/16 12:48 Globulin 3.8 g/dL (2.1-4.2) 12/31/16 12:48 Albumin/Globulin Ratio 1.0 (1.0-2.2) 12/31/16 12:48 Lipase 20 U/L (22-51) L 12/31/16 12:48
[2017-01-02] MEDS: SODIUM CHLORIDE FLUSH 0.9% 10 ML SYRINGE IVP PRN (13:51)
[2017-01-02] MEDS ORDERED: IPRATROPIUM/ALBUTEROL 3 ML NEB INH ONE (15:25)
[2017-01-02] MEDS: IPRATROPIUM/ALBUTEROL 3 ML NEB INH PRN (15:26)
[2017-01-02] MEDS: MONTELUKAST 10 MG TABLET PO SCH (21:14)
[2017-01-02] MEDS: guaiFENesin/CODEINE 5 ML UDC PO PRN (22:43)
[2017-01-03] MEDS: guaiFENesin/CODEINE 5 ML UDC PO PRN ×3 (04:53→23:37)
[2017-01-03] MEDS: SODIUM CHLORIDE FLUSH 0.9% 10 ML SYRINGE IVP SCH ×3 (05:07→23:37)
[2017-01-03 05:51] LABS: BASOPHILS # (AUTO) 0.1 10^3/uL (0.0-0.1); BASOPHILS % (AUTO) 0.5 %; EOSINOPHILS % (AUTO) 0.2 %; HCT - HEMATOCRIT 36.2 % (37.0-47.0); HGB - HEMOGLOBIN 10.3 g/dL (12.0-16.0); LYMPHOCYTES # (AUTO) 1.1 10^3/uL (1.5-3.5); MEAN CORPUSCULAR HEMOGLOBIN 20.9 pg (27.0-31.0); MEAN CORPUSCULAR HGB CONC 28.5 g/dL (32.0-36.0); MEAN CORPUSCULAR VOLUME 73.4 fL (81.0-99.0); MEAN PLATELET VOLUME 8.6 fL (7.9-10.8); MONOCYTES # (AUTO) 0.6 10^3/uL (0.0-1.0); MONOCYTES % (AUTO) 3.2 %; NEUTROPHILS % (AUTO) 90.1 %; NUCLEATED RED BLOOD CELLS AUTO 0.1 /100WBC; RED BLOOD COUNT 4.94 10^6/uL (4.20-5.40); RED CELL DISTRIBUTION WIDTH 24.6 % (12.0-15.0); UNCORRECTED WHITE BLOOD COUNT 17.8 x10^3/uL; WHITE BLOOD COUNT 17.8 x10^3/uL (4.8-10.8)
[2017-01-03 06:01] LABS: CALCIUM 9.3 mg/dL (8.5-10.3); POTASSIUM 4.2 mmol/L (3.5-5.0)
[2017-01-03] MEDS: PANTOPRAZOLE 40 MG TABLET PO SCH (06:20)
[2017-01-03] MEDS: methylPREDNISolone SUCCINATE 40 MG/ML VIAL IVP SCH (06:20)
[2017-01-03 06:49] LABS: NP AUTO DIFFERENTIAL? NO; NP MAN DIFFERENTIAL? YES; PLATELET ESTIMATE, MANUAL NORMAL (130-450,000) (NORMAL); PLATELET MORPHOLOGY 1+ LARGE PLATELETS (NORMAL)
[2017-01-03] MEDS: FORMOTEROL FUMARATE NEB 20 MCG/2 ML INH SCH ×2 (07:29→19:43)
[2017-01-03] MEDS: BUDESONIDE 0.5 MG/2 ML NEB INH SCH ×2 (07:29→19:43)
[2017-01-03] MEDS: IPRATROPIUM/ALBUTEROL 3 ML NEB INH PRN ×2 (07:33→10:49)
[2017-01-03] MEDS: cefTRIAXone 2 GM in SODIUM CHLORIDE 0.9% MINIBAG 100 ML IV SCH (08:55)
[2017-01-03] MEDS: SACCHAROMYCES BOULARDII 250 MG CAPSULE PO SCH ×2 (08:55→17:05)
[2017-01-03] MEDS: ENOXAPARIN 40 MG/0.4 ML SYRINGE SUBQ SCH (08:55)
[2017-01-03] MEDS: TOLTERODINE LA 2 MG CAPSULE PO SCH (08:55)
[2017-01-03] MEDS: POLYETHYLENE GLYCOL 3350 17 GM PACKET PO SCH (08:55)
[2017-01-03] MEDS: ESCITALOPRAM 10 MG TABLET PO SCH (08:56)
[2017-01-03] MEDS: guaiFENesin 600 MG TABLET PO SCH ×2 (08:56→20:25)
[2017-01-03] MEDS: ALLOPURINOL 100 MG TABLET PO SCH (08:56)
[2017-01-03] MEDS: SODIUM CHLORIDE 0.9% 1,000 ML IV SCH ×2 (09:07→23:40)
[2017-01-03] MEDS: AZITHROMYCIN INJ 500 MG in SODIUM CHLORIDE 0.9% 250 ML IV SCH (10:03)
[2017-01-03] MEDS ORDERED: IPRATROPIUM/ALBUTEROL 3 ML NEB INH ONE (10:47)
[2017-01-03] MEDS: IPRATROPIUM/ALBUTEROL 3 ML NEB INH ONE ×2 (10:49→10:50)
[2017-01-03] MEDS: predniSONE 20 MG TABLET PO SCH (12:25)
--- NOTE | 2017-01-03 13:11 | PROVIDER PROGRESS NOTE ---
Assessment/Plan - Problem List (1) Sepsis Assessment/Plan: resented with fever over 39, tachycardia of 120s, hypoxia, leukocytosis 16K and renal insufficiency Lactate normal and BP stable Patients source is likely pneumonia CXR showed bibasilar infiltrates worse on the right Patient given IVFs and started on IV abx with ceftriaxone and Azithromycin HR improved, fevers subsided, BP stable Blood cx negative Resolved (2) CAP (community acquired pneumonia) Conclusion/Plan: Presented with generalized weakness, cough, shortness of air and had fever, leukocytosis and hypoxia CXR showed bibasilar pneumonia Day 4 of Ceftriaxone and Azithro Down to 2L still a little hypoxic on RA but improving Lungs with rhonci but wheezing much improved WBC worse today Hypoxic down to 88% on RA when O2 taken off Still a lot of coughing and soa will continue treatment for one more day not ready for discharge today Slightly worse today (3) 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 Resolved (4) Hyponatremia Conclusion/Plan: Hypovolemic hyponatremia likely secondary to infection and dehydration Given IVFs Resolved (5) Asthma Exacerbation Conclusion/Plan: Initially appeared to have only pneumonia but then had diffuse wheezing and hypoxia which appeared to be asthma exacerbation On IV solumedrol, Duonebs ATC and prn and monteleukast Switch to PO prednisone and duonebs prn as wheezing is much improved Improving (6) Depression Conclusion/Plan: Continue lexapro Stable (7) Migraine Conclusion/Plan: Bad migraine headache 2 days ago took home triptan and oxycodone Continue triptan prn Resolved (8) Prophylactic use of low molecular weight heparin for venous thromboembolism Conclusion/Plan: On lovenox daily - Current Meds Current Meds: Current Medications Generic Name Dose Route Start Last Admin Trade Name Freq PRN Reason Stop Dose Admin Acetaminophen 650 mg 12/31/16 13:54 01/01/17 04:07 Tylenol PO 650 mg Q4HR PRN Administration Pain 1 to 4 Allopurinol 300 mg 01/01/17 09:00 01/03/17 08:56 Zyloprim PO 300 mg DAILY ELENA Administration Budesonide 0.5 mg 12/31/16 19:00 01/03/17 07:29 Pulmicort INH 0.5 mg RTBID ELENA Administration Enoxaparin Sodium 40 mg 01/01/17 09:00 01/03/17 08:55 Lovenox SUBQ 40 mg DAILY ELENA Administration Escitalopram Oxalate 20 mg 01/01/17 09:00 01/03/17 08:56 Lexapro PO 20 mg DAILY ELENA Administration Formoterol Fumarate 20 mcg 12/31/16 19:00 01/03/17 07:29 Perforomist INH 20 mcg RTBID ELENA Administration Guaifenesin 600 mg 01/01/17 10:00 01/03/17 08:56 Mucinex PO 600 mg BID ELENA Administration Guaifenesin/Codeine Phosphate 5 ml 01/01/17 09:55 01/03/17 04:53 Robitussin Ac PO 5 ml Q6HR PRN Administration Cough Hydroxyurea 500 mg 01/01/17 19:00 01/01/17 20:10 Hydrea PO 500 mg [id number] ELENA Administration Sodium Chloride 1,000 mls @ 100 mls/hr 12/31/16 16:00 01/03/17 09:07 Normal Saline 0.9% IV 100 mls/hr .Q10H ELENA Administration Azithromycin 500 mg/ Sodium 250 mls @ 250 mls/hr 12/31/16 16:00 01/03/17 10:03 Chloride IV 250 mls/hr DAILY@1000 ELENA Administration Ceftriaxone Sodium 2 gm/ 100 mls @ 200 mls/hr 12/31/16 17:00 01/03/17 08:55 Sodium Chloride IV 200 mls/hr DAILY ELENA Administration Montelukast Sodium 10 mg 12/31/16 21:00 01/02/17 21:14 Singulair PO 10 mg QPM ELENA Administration Oxycodone HCl 5 mg 12/31/16 13:54 01/01/17 13:47 Roxicodone PO 5 mg Q4HR PRN Administration Pain 5 to 7 Oxycodone HCl 10 mg 12/31/16 13:54 01/01/17 18:25 Roxicodone PO 10 mg Q4HR PRN Administration Pain 8 to 10 Pantoprazole Sodium 40 mg 01/01/17 07:00 01/03/17 06:20 Protonix PO 40 mg QDAC ELENA Administration Polyethylene Glycol 17 gm 01/01/17 09:00 01/03/17 08:55 Miralax PO 17 gm DAILY ELENA Administration Prednisone 40 mg 01/03/17 12:00 01/03/17 12:25 Deltasone PO 40 mg DAILYWM ELENA Administration Saccharomyces Boulardii 250 mg 12/31/16 17:00 01/03/17 08:55 Florastor PO 250 mg BIDWM ELENA Administration Sodium Chloride 10 ml 12/31/16 13:54 01/02/17 13:51 Normal Saline Flush 0.9% IVP 10 ml PRN PRN Administration NEEDED PER PROVIDER ORDERS Sodium Chloride 10 ml 12/31/16 22:00 01/03/17 05:07 Normal Saline Flush 0.9% IVP Not Given Q8HR ELENA Tolterodine Tartrate 4 mg 01/01/17 09:00 01/03/17 08:55 Detrol La PO 4 mg DAILY ELENA Administration - Lab Result Lab results reviewed: Yes Fish Bone Diagrams: 01/03/17 05:25 01/03/17 05:25 - EKG Results EKG Interpreted Independently: Yes - Diagnostic Imaging Results Diagnostic Imaging Results: positive: Final report reviewed - Additional Planning Condition/Complexity: Stable My Orders: My Active Orders 01/03/17 11:00 Ipratropium/Albuterol [Duoneb] 3 ml INH RTQID 01/03/17 12:00 predniSONE [Deltasone] 40 mg PO DAILYWM Plan Discussed with:: Patient Time Spent: 31-60 minutes Subjective - Subjective Patient Reports: Cough (Not improved), Chest Pain (With coughing and deep breathing), Shortness of Breath (With exertion), Other (No fevers, strength is improved) Nursing Reports: No Complaints Objective Vital Signs: Vital Signs - 24 hr 01/02/17 01/02/17 01/02/17 15:30 19:00 20:02 Temperature 36.8 C Heart Rate 84 97 Heart Rate [ 97 Brachial] Respiratory 20 18 18 Rate Blood Pressure 136/69 H [Left Brachial artery] Blood Pressure [Right Brachial artery] O2 Saturation 97 01/03/17 01/03/17 01/03/17 01:10 07:30 10:52 Temperature 36.4 C L Heart Rate 86 102 H Heart Rate [ 82 Brachial] Respiratory 16 22 22 Rate Blood Pressure [Left Brachial artery] Blood Pressure 142/80 H [Right Brachial artery] O2 Saturation 96 Oxygen O2 Source Nasal cannula I&O (Last 24 Hrs): Intake and Output Totals x24h 05/19/17 05/20/17 05/21/17 23:59 23:59 23:59 Intake Total 5331 5186 2069 Output Total 2400 3800 1650 Balance 2931 1386 419 General: Alert, Oriented x3, Cooperative, No acute distress HEENT: Atraumatic, PERRLA, EOMI, Mucous membr. moist/pink Neck: Supple, No JVD, No thyromegaly, +2 carotid pulse wo bruit, No LAD Lymphatic: no adenopathy Neuro: Alert, Non Focal, CN 2-12 Grossly Intact, Oriented Times 3 Cardiovascular: Regular rate, Normal S1, Normal S2, No murmurs Respiratory: Chest non-tender, Wheezes (improved), Rhonchi (bibasilar), Other ( coughing with deep inspiration) Abdomen: Normal bowel sounds, Soft, No tenderness, No hepatospenomegaly Extremities: No clubbing, No cyanosis, No edema, Normal pulses, No tenderness/ swelling Skin: No rashes, No breakdown, No significant lesion - Results Results: Laboratory Results WBC 17.8 x10^3/uL (4.8-10.8) H 01/03/17 05:25 RBC 4.94 10^6/uL (4.20-5.40) 01/03/17 05:25 Hgb 10.3 g/dL (12.0-16.0) L 01/03/17 05:25 Hct 36.2 % (37.0-47.0) L 01/03/17 05:25 MCV 73.4 fL (81.0-99.0) L 01/03/17 05:25 MCH 20.9 pg (27.0-31.0) L 01/03/17 05:25 MCHC 28.5 g/dL (32.0-36.0) L 01/03/17 05:25 RDW 24.6 % (12.0-15.0) H 01/03/17 05:25 Plt Count 507 10^3/uL (130-450) H 01/03/17 05:25 MPV 8.6 fL (7.9-10.8) 01/03/17 05:25 Neut # 16.0 10^3/uL (1.5-6.6) H 01/03/17 05:25 Lymph # 1.1 10^3/uL (1.5-3.5) L 01/03/17 05:25 [place] # 0.6 10^3/uL (0.0-1.0) 01/03/17 05:25 Eos # 0.0 10^3/uL (0.0-0.7) 01/03/17 05:25 Baso # 0.1 10^3/uL (0.0-0.1) 01/03/17 05:25 Absolute Nucleated RBC 0.02 x10^3/uL 01/03/17 05:25 Band Neuts % (Manual) Not Reportable 01/03/17 05:25 Nucleated RBCs 0.1 /100WBC 01/03/17 05:25 Differential Comment MANUAL=AUTO DIFF 01/03/17 05:25 Manual Slide Review Indicated 01/01/17 05:54 Platelet Estimate NORMAL (130-450,000) (NORMAL) 01/03/17 05:25 Platelet Morphology 1+ LARGE PLATELETS (NORMAL) 01/03/17 05:25 RBC Morph Micro Appear 1+ ANISOCYTOSIS (NORMAL) 1+ MACROCYTOSIS (NORMAL) 1+ OVALOCYTES (NORMAL) 12/31/16 12:48 RBC Morph Micro Appear 2+ ANISOCYTOSIS (NORMAL) 1+ POLYCHROMASIA (NORMAL) 1 + OVALOCYTES (NORMAL) 1+ SCHISTOCYTES (NORMAL) 1+ TEARDROP CELLS (NORMAL) 01/01/17 05:54 RBC Morph Micro Appear 2+ ANISOCYTOSIS (NORMAL) 1+ POLYCHROMASIA (NORMAL) 1 + OVALOCYTES (NORMAL) 1+ SCHISTOCYTES (NORMAL) 1+ TEARDROP CELLS (NORMAL) 01/01/17 05:54 RBC Morph Micro Appear 2+ ANISOCYTOSIS (NORMAL) 1+ POLYCHROMASIA (NORMAL) 1 + OVALOCYTES (NORMAL) 1+ SCHISTOCYTES (NORMAL) 1+ TEARDROP CELLS (NORMAL) 01/01/17 05:54 RBC Morph Micro Appear 2+ ANISOCYTOSIS (NORMAL) 1+ POLYCHROMASIA (NORMAL) 1 + OVALOCYTES (NORMAL) 1+ SCHISTOCYTES (NORMAL) 1+ TEARDROP CELLS (NORMAL) 01/01/17 05:54 RBC Morph Micro Appear 2+ ANISOCYTOSIS (NORMAL) 1+ POLYCHROMASIA (NORMAL) 1 + OVALOCYTES (NORMAL) 1+ SCHISTOCYTES (NORMAL) 1+ TEARDROP CELLS (NORMAL) 01/01/17 05:54 RBC Morph Micro Appear 2+ ANISOCYTOSIS (NORMAL) 2+ OVALOCYTES (NORMAL) 1+ POLYCHROMASIA (NORMAL) 01/03/17 05:25 RBC Morph Micro Appear 2+ ANISOCYTOSIS (NORMAL) 2+ OVALOCYTES (NORMAL) 1+ POLYCHROMASIA (NORMAL) 01/03/17 05:25 RBC Morph Micro Appear 2+ ANISOCYTOSIS (NORMAL) 2+ OVALOCYTES (NORMAL) 1+ POLYCHROMASIA (NORMAL) 01/03/17 05:25 Sodium 141 mmol/L (135-145) 01/03/17 05:25 Potassium 4.2 mmol/L (3.5-5.0) 01/03/17 05:25 Chloride 110 mmol/L (101-111) 01/03/17 05:25 Carbon Dioxide 23 mmol/L (21-32) 01/03/17 05:25 Anion Gap 8.0 (6-13) 01/03/17 05:25 BUN 16 mg/dL (6-20) 01/03/17 05:25 Creatinine 1.0 mg/dL (0.4-1.0) 01/03/17 05:25 Estimated GFR (MDRD) 55 (>89) L 01/03/17 05:25 Glucose 132 mg/dL (70-100) H 01/03/17 05:25 Lactic Acid 0.7 mmol/L (0.5-2.2) 12/31/16 12:48 Calcium 9.3 mg/dL (8.5-10.3) 01/03/17 05:25 Total Bilirubin 0.9 mg/dL (0.2-1.0) 12/31/16 12:48 AST 20 IU/L (10-42) 12/31/16 12:48 ALT 13 IU/L (10-60) 12/31/16 12:48 Alkaline Phosphatase 69 IU/L (42-121) 12/31/16 12:48 Total Protein 7.6 g/dL (6.7-8.2) 12/31/16 12:48 Albumin 3.8 g/dL (3.2-5.5) 12/31/16 12:48 Globulin 3.8 g/dL (2.1-4.2) 12/31/16 12:48 Albumin/Globulin Ratio 1.0 (1.0-2.2) 12/31/16 12:48 Lipase 20 U/L (22-51) L 12/31/16 12:48
[2017-01-03] MEDS: IPRATROPIUM/ALBUTEROL 3 ML NEB INH SCH ×3 (14:38→21:14)
[2017-01-03] MEDS: oxyCODONE 5 MG TABLET PO PRN (20:25)
[2017-01-03] MEDS: MONTELUKAST 10 MG TABLET PO SCH (20:25)
[2017-01-04 06:02] LABS: BASOPHILS # (AUTO) 0.1 10^3/uL (0.0-0.1); BASOPHILS % (AUTO) 0.4 %; EOSINOPHILS # (AUTO) 0.1 10^3/uL (0.0-0.7); EOSINOPHILS % (AUTO) 0.6 %; HCT - HEMATOCRIT 35.6 % (37.0-47.0); HGB - HEMOGLOBIN 10.2 g/dL (12.0-16.0); LYMPHOCYTES # (AUTO) 1.3 10^3/uL (1.5-3.5); MEAN CORPUSCULAR HGB CONC 28.7 g/dL (32.0-36.0); MEAN PLATELET VOLUME 7.8 fL (7.9-10.8); MONOCYTES # (AUTO) 0.9 10^3/uL (0.0-1.0); MONOCYTES % (AUTO) 4.9 %; NEUTROPHILS # (AUTO) 16.3 10^3/uL (1.5-6.6); NEUTROPHILS % (AUTO) 87.1 %; NUCLEATED RED BLOOD CELLS AUTO 0.1 /100WBC; RED BLOOD COUNT 4.87 10^6/uL (4.20-5.40); RED CELL DISTRIBUTION WIDTH 24.4 % (12.0-15.0); UNCORRECTED WHITE BLOOD COUNT 18.7 x10^3/uL; WHITE BLOOD COUNT 18.7 x10^3/uL (4.8-10.8)
[2017-01-04 06:06] LABS: CALCIUM 9.4 mg/dL (8.5-10.3); CREATININE 1.1 mg/dL (0.4-1.0); POTASSIUM 3.7 mmol/L (3.5-5.0)
[2017-01-04] MEDS: oxyCODONE 5 MG TABLET PO PRN ×3 (06:07→10:11)
[2017-01-04] MEDS: SODIUM CHLORIDE FLUSH 0.9% 10 ML SYRINGE IVP SCH ×3 (06:07→20:23)
[2017-01-04] MEDS: guaiFENesin/CODEINE 5 ML UDC PO PRN (06:07)
[2017-01-04] MEDS: PANTOPRAZOLE 40 MG TABLET PO SCH (06:08)
[2017-01-04 06:32] LABS: NP AUTO DIFFERENTIAL? NO; NP MAN DIFFERENTIAL? YES; PLATELET ESTIMATE, MANUAL NORMAL (130-450,000) (NORMAL); PLATELET MORPHOLOGY 1+ LARGE PLATELETS (NORMAL)
[2017-01-04] MEDS: BUDESONIDE 0.5 MG/2 ML NEB INH SCH ×2 (07:15→20:34)
[2017-01-04] MEDS: IPRATROPIUM/ALBUTEROL 3 ML NEB INH SCH ×4 (07:15→20:34)
[2017-01-04] MEDS: FORMOTEROL FUMARATE NEB 20 MCG/2 ML INH SCH ×2 (07:15→20:34)
[2017-01-04] MEDS: POLYETHYLENE GLYCOL 3350 17 GM PACKET PO SCH (08:36)
[2017-01-04] MEDS: cefTRIAXone 2 GM in SODIUM CHLORIDE 0.9% MINIBAG 100 ML IV SCH (08:37)
[2017-01-04] MEDS: SENNA 8.6 MG TABLET PO SCH (08:38)
[2017-01-04] MEDS: ESCITALOPRAM 10 MG TABLET PO SCH (08:38)
[2017-01-04] MEDS: DOCUSATE SODIUM 250 MG CAPSULE PO SCH (08:38)
[2017-01-04] MEDS: SACCHAROMYCES BOULARDII 250 MG CAPSULE PO SCH ×2 (08:39→16:12)
[2017-01-04] MEDS: HYDROXYUREA 500 MG CAPSULE PO SCH (08:39)
[2017-01-04] MEDS: ENOXAPARIN 40 MG/0.4 ML SYRINGE SUBQ SCH (08:39)
[2017-01-04] MEDS: ALLOPURINOL 100 MG TABLET PO SCH (08:39)
[2017-01-04] MEDS: guaiFENesin 600 MG TABLET PO SCH ×2 (08:39→20:23)
[2017-01-04] MEDS: TOLTERODINE LA 2 MG CAPSULE PO SCH (08:39)
[2017-01-04] MEDS: predniSONE 20 MG TABLET PO SCH (08:39)
[2017-01-04] MEDS: LINACLOTIDE 145 MCG PO SCH (10:06)
[2017-01-04] MEDS: AZITHROMYCIN INJ 500 MG in SODIUM CHLORIDE 0.9% 250 ML IV SCH (10:12)
--- NOTE | 2017-01-04 16:21 | XRAY Report ---
CHEST PA AND LATERAL: 01/04/2017 CLINICAL HISTORY: Pneumonia with worsening white blood cell count. The patient is not improving. FINDINGS: Normal cardiac size is seen. The mediastinum is not widened. Pulmonary parenchyma demonstrates progression of previously noted bilateral lower lobe infiltrates. T here is now a partial consolidation. Lower lobe findings have shown significant progression as compar ed to 12/31/2016. Interval improvement is seen especially on lateral projection of infiltrates in the right middle lobe. The bones show no significant abnormality. IMPRESSION: 1. PROGRESSION OF PREVIOUSLY NOTED BILATERAL LOWER LOBE INFILTRATES WITH NOW A PARTIAL CONSOLIDATION OF THE POSTERIOR SEGMENT OF EACH LOWER LOBE. 2. IMPROVEMENT IS SEEN IN PREVIOUSLY NOTED RIGHT MIDDLE LOBE INFILTRATE. JOB #: [id number] EXT JOB #:[id number]
[2017-01-04] MEDS ORDERED: VANCOMYCIN PER PHARMACY 1 GM in SODIUM CHLORIDE 0.9% 250 ML IV SCH (17:00)
--- NOTE | 2017-01-04 17:03 | PROVIDER PROGRESS NOTE ---
Assessment/Plan - Problem List (1) Sepsis Assessment/Plan: resented with fever over 39, tachycardia of 120s, hypoxia, leukocytosis 16K and renal insufficiency Lactate normal and BP stable Patients source is likely pneumonia CXR showed bibasilar infiltrates worse on the right Patient given IVFs and started on IV abx with ceftriaxone and Azithromycin HR improved, fevers subsided, BP stable Blood cx negative Resolved (2) CAP (community acquired pneumonia) Conclusion/Plan: Presented with generalized weakness, cough, shortness of air and had fever, leukocytosis and hypoxia CXR showed bibasilar pneumonia Day 5 of Ceftriaxone and Azithro Feeling worse today down to 1L of O2 but feels muscle aches and increasing cough still short of breath Repeat CXR shows progression of pneumonia Will switch abx today start on Vancomycin and Cefepime and stop ceftriaxone and azithro Continue to monitor and wean O2 (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 Resolved (4) Hyponatremia Conclusion/Plan: Hypovolemic hyponatremia likely secondary to infection and dehydration Given IVFs Resolved (5) Asthma Exacerbation Conclusion/Plan: Initially appeared to have only pneumonia but then had diffuse wheezing and hypoxia which appeared to be asthma exacerbation On prednisone, Duonebs prn and monteleukast Decreased wheezing and hypoxia Improving (6) Depression Conclusion/Plan: Continue lexapro Stable (7) Migraine Conclusion/Plan: Bad migraine headache 3 days ago took home triptan and oxycodone Continue triptan prn Resolved (8) Prophylactic use of low molecular weight heparin for venous thromboembolism Conclusion/Plan: On lovenox daily - Current Meds Current Meds: Current Medications Generic Name Dose Route Start Last Admin Trade Name Freq PRN Reason Stop Dose Admin Acetaminophen 650 mg 12/31/16 13:54 01/01/17 04:07 Tylenol PO 650 mg Q4HR PRN Administration Pain 1 to 4 Albuterol/Ipratropium 3 ml 01/03/17 11:00 01/04/17 15:00 Duoneb INH 01/10/17 10:59 3 ml RTQID ELENA Administration Allopurinol 300 mg 01/01/17 09:00 01/04/17 08:39 Zyloprim PO 300 mg DAILY ELENA Administration Budesonide 0.5 mg 12/31/16 19:00 01/04/17 07:15 Pulmicort INH 0.5 mg RTBID ELENA Administration Docusate Sodium 250 - 500 mg 01/04/17 09:00 01/04/17 08:38 Colace 250mg Capsule PO 500 mg DAILY ELENA Administration Enoxaparin Sodium 40 mg 01/01/17 09:00 01/04/17 08:39 Lovenox SUBQ 40 mg DAILY ELENA Administration Escitalopram Oxalate 20 mg 01/01/17 09:00 01/04/17 08:38 Lexapro PO 20 mg DAILY ELENA Administration Formoterol Fumarate 20 mcg 12/31/16 19:00 01/04/17 07:15 Perforomist INH 20 mcg RTBID ELENA Administration Guaifenesin 600 mg 01/01/17 10:00 01/04/17 08:39 Mucinex PO 600 mg BID ELENA Administration Guaifenesin/Codeine Phosphate 5 ml 01/01/17 09:55 01/04/17 06:07 Robitussin Ac PO 5 ml Q6HR PRN Administration Cough Hydroxyurea 500 mg 01/01/17 19:00 01/04/17 08:39 Hydrea PO 500 mg [id number] ELENA Administration Montelukast Sodium 10 mg 12/31/16 21:00 01/03/17 20:25 Singulair PO 10 mg QPM ELENA Administration Oxycodone HCl 5 mg 12/31/16 13:54 01/04/17 08:48 Roxicodone PO 5 mg Q4HR PRN Administration Pain 5 to 7 Oxycodone HCl 10 mg 12/31/16 13:54 01/04/17 10:11 Roxicodone PO 10 mg Q4HR PRN Administration Pain 8 to 10 Pantoprazole Sodium 40 mg 01/01/17 07:00 01/04/17 06:08 Protonix PO 40 mg QDAC ELENA Administration (Linaclotide [ 1 each 01/04/17 09:00 01/04/17 10:06 Linzess] 145 Mcg) PO Not Given Tab DAILY ELENA Polyethylene Glycol 17 gm 01/01/17 09:00 01/04/17 08:36 Miralax PO 17 gm DAILY ELENA Administration Prednisone 40 mg 01/03/17 12:00 01/04/17 08:39 Deltasone PO 40 mg DAILYWM ELENA Administration Saccharomyces Boulardii 250 mg 12/31/16 17:00 01/04/17 16:12 Florastor PO 250 mg BIDWM ELENA Administration Senna 8.6 - 17.2 mg 01/04/17 09:00 01/04/17 08:38 Senokot PO 17.2 mg DAILY ELENA Administration Sodium Chloride 10 ml 12/31/16 13:54 01/02/17 13:51 Normal Saline Flush 0.9% IVP 10 ml PRN PRN Administration NEEDED PER PROVIDER ORDERS Sodium Chloride 10 ml 12/31/16 22:00 01/04/17 13:52 Normal Saline Flush 0.9% IVP Not Given Q8HR ELENA Tolterodine Tartrate 4 mg 01/01/17 09:00 01/04/17 08:39 Detrol La PO 4 mg DAILY ELENA Administration - Lab Result Lab results reviewed: Yes Fish Bone Diagrams: 01/04/17 05:24 01/04/17 05:24 - EKG Results EKG Interpreted Independently: Yes - Diagnostic Imaging Results Diagnostic Imaging Results: positive: Final report reviewed - Additional Planning Condition/Complexity: Guarded My Orders: My Active Orders 01/04/17 09:00 Docusate Sodium 250Mg Capsule [Colace 250Mg Capsule] 250 - 500 mg PO DAILY Patient Own Med [Patient Own Medication] 1 each PO DAILY Senna [Senokot] 8.6 - 17.2 mg PO DAILY 01/04/17 17:00 Vancomycin Inj [Vancomycin] 1 gm Sodium Chloride 0.9% [Normal Saline 0.9%] 250 ml IV Q12H 01/04/17 21:00 Cefepime 2 gm Sodium Chloride 0.9% Minibag [Normal Saline 0.9% Minibag] 100 ml IV BID 01/06/17 04:30 VANCOMYCIN TROUGH [CHEM] Timed Plan Discussed with:: Patient Time Spent: 31-60 minutes Subjective - Subjective Patient Reports: Other (Patient feels worse today with increasing cough and shortness of breath. She states she is achey feels muscle pains and feels weaker today. She also continues to have chest tightness.) Objective Vital Signs: Vital Signs - 24 hr 01/03/17 01/03/17 01/04/17 19:44 23:45 07:15 Temperature 37.1 C Heart Rate 78 80 Heart Rate [ 79 Brachial] Respiratory 18 16 18 Rate Blood Pressure 108/66 [Left Brachial artery] O2 Saturation 95 01/04/17 01/04/17 11:10 15:00 Temperature Heart Rate 88 88 Heart Rate [ Brachial] Respiratory 18 18 Rate Blood Pressure [Left Brachial artery] O2 Saturation Oxygen O2 Source Nasal cannula I&O (Last 24 Hrs): Intake and Output Totals x24h 01/02/17 01/03/17 01/04/17 23:59 23:59 23:59 Intake Total 5186 5219 1200 Output Total 3800 4275 1600 Balance 1386 944 -400 General: Alert, Oriented x3, Cooperative, Mild distress (Looks ill this am, weak , coughing) HEENT: Atraumatic, PERRLA, EOMI, Mucous membr. moist/pink Neck: Supple, No JVD, No thyromegaly, +2 carotid pulse wo bruit, No LAD Lymphatic: no adenopathy Neuro: Alert, Non Focal, CN 2-12 Grossly Intact, Oriented Times 3 Cardiovascular: Regular rate, Normal S1, Normal S2, No murmurs Respiratory: Chest non-tender, Wheezes (scattered, mild), Rhonchi (bilateral bases, worse today) Abdomen: Normal bowel sounds, Soft, No tenderness, No hepatospenomegaly Extremities: No clubbing, No cyanosis, Normal pulses, Other (Mild swelling of the ankles) Skin: No rashes, No breakdown, No significant lesion - Results Results: Laboratory Results WBC 18.7 x10^3/uL (4.8-10.8) H 01/04/17 05:24 RBC 4.87 10^6/uL (4.20-5.40) 01/04/17 05:24 Hgb 10.2 g/dL (12.0-16.0) L 01/04/17 05:24 Hct 35.6 % (37.0-47.0) L 01/04/17 05:24 MCV 73.0 fL (81.0-99.0) L 01/04/17 05:24 MCH 21.0 pg (27.0-31.0) L 01/04/17 05:24 MCHC 28.7 g/dL (32.0-36.0) L 01/04/17 05:24 RDW 24.4 % (12.0-15.0) H 01/04/17 05:24 Plt Count 465 10^3/uL (130-450) H 01/04/17 05:24 MPV 7.8 fL (7.9-10.8) L 01/04/17 05:24 Neut # 16.3 10^3/uL (1.5-6.6) H 01/04/17 05:24 Lymph # 1.3 10^3/uL (1.5-3.5) L 01/04/17 05:24 [place] # 0.9 10^3/uL (0.0-1.0) 01/04/17 05:24 Eos # 0.1 10^3/uL (0.0-0.7) 01/04/17 05:24 Baso # 0.1 10^3/uL (0.0-0.1) 01/04/17 05:24 Absolute Nucleated RBC 0.03 x10^3/uL 01/04/17 05:24 Band Neuts % (Manual) Not Reportable 01/04/17 05:24 Nucleated RBCs 0.1 /100WBC 01/04/17 05:24 Differential Comment MANUAL=AUTO DIFF 01/04/17 05:24 Manual Slide Review Indicated 01/04/17 05:24 Platelet Estimate NORMAL (130-450,000) (NORMAL) 01/04/17 05:24 Platelet Morphology 1+ LARGE PLATELETS (NORMAL) 01/04/17 05:24 RBC Morph Micro Appear 2+ ANISOCYTOSIS (NORMAL) 1+ POLYCHROMASIA (NORMAL) 1 + OVALOCYTES (NORMAL) 1+ SCHISTOCYTES (NORMAL) 1+ TEARDROP CELLS (NORMAL) 01/01/17 05:54 RBC Morph Micro Appear 2+ ANISOCYTOSIS (NORMAL) 1+ POLYCHROMASIA (NORMAL) 1 + OVALOCYTES (NORMAL) 1+ SCHISTOCYTES (NORMAL) 1+ TEARDROP CELLS (NORMAL) 01/01/17 05:54 RBC Morph Micro Appear 2+ ANISOCYTOSIS (NORMAL) 1+ POLYCHROMASIA (NORMAL) 1 + OVALOCYTES (NORMAL) 1+ SCHISTOCYTES (NORMAL) 1+ TEARDROP CELLS (NORMAL) 01/01/17 05:54 RBC Morph Micro Appear 2+ ANISOCYTOSIS (NORMAL) 1+ POLYCHROMASIA (NORMAL) 1 + OVALOCYTES (NORMAL) 1+ SCHISTOCYTES (NORMAL) 1+ TEARDROP CELLS (NORMAL) 01/01/17 05:54 RBC Morph Micro Appear 2+ ANISOCYTOSIS (NORMAL) 1+ POLYCHROMASIA (NORMAL) 1 + OVALOCYTES (NORMAL) 1+ SCHISTOCYTES (NORMAL) 1+ TEARDROP CELLS (NORMAL) 01/01/17 05:54 RBC Morph Micro Appear 2+ ANISOCYTOSIS (NORMAL) 2+ OVALOCYTES (NORMAL) 1+ POLYCHROMASIA (NORMAL) 01/03/17 05:25 RBC Morph Micro Appear 2+ ANISOCYTOSIS (NORMAL) 2+ OVALOCYTES (NORMAL) 1+ POLYCHROMASIA (NORMAL) 01/03/17 05:25 RBC Morph Micro Appear 2+ ANISOCYTOSIS (NORMAL) 2+ OVALOCYTES (NORMAL) 1+ POLYCHROMASIA (NORMAL) 01/03/17 05:25 RBC Morph Micro Appear 2+ OVALOCYTES (NORMAL) 2+ ANISOCYTOSIS (NORMAL) 05:24 RBC Morph Micro Appear 2+ OVALOCYTES (NORMAL) 2+ ANISOCYTOSIS (NORMAL) 05:24 Sodium 140 mmol/L (135-145) 01/04/17 05:24 Potassium 3.7 mmol/L (3.5-5.0) 01/04/17 05:24 Chloride 108 mmol/L (101-111) 01/04/17 05:24 Carbon Dioxide 26 mmol/L (21-32) 01/04/17 05:24 Anion Gap 6.0 (6-13) 01/04/17 05:24 BUN 17 mg/dL (6-20) 01/04/17 05:24 Creatinine 1.1 mg/dL (0.4-1.0) H 01/04/17 05:24 Estimated GFR (MDRD) 49 (>89) L 01/04/17 05:24 Glucose 95 mg/dL (70-100) 01/04/17 05:24 Lactic Acid 0.7 mmol/L (0.5-2.2) 12/31/16 12:48 Calcium 9.4 mg/dL (8.5-10.3) 01/04/17 05:24 Total Bilirubin 0.9 mg/dL (0.2-1.0) 12/31/16 12:48 AST 20 IU/L (10-42) 12/31/16 12:48 ALT 13 IU/L (10-60) 12/31/16 12:48 Alkaline Phosphatase 69 IU/L (42-121) 12/31/16 12:48 Total Protein 7.6 g/dL (6.7-8.2) 12/31/16 12:48 Albumin 3.8 g/dL (3.2-5.5) 12/31/16 12:48 Globulin 3.8 g/dL (2.1-4.2) 12/31/16 12:48 Albumin/Globulin Ratio 1.0 (1.0-2.2) 12/31/16 12:48 Lipase 20 U/L (22-51) L 12/31/16 12:48
[2017-01-04] MEDS: VANCOMYCIN INJ 1 GM in SODIUM CHLORIDE 0.9% 250 ML IV SCH (17:36)
[2017-01-04] MEDS: MONTELUKAST 10 MG TABLET PO SCH (20:22)
[2017-01-04] MEDS: CEFEPIME 2 GM in SODIUM CHLORIDE 0.9% MINIBAG 100 ML IV SCH (20:22)
[2017-01-05] MEDS: guaiFENesin/CODEINE 5 ML UDC PO PRN ×2 (00:36→23:48)
[2017-01-05] MEDS: VANCOMYCIN INJ 1 GM in SODIUM CHLORIDE 0.9% 250 ML IV SCH ×2 (05:00→17:46)
[2017-01-05] MEDS: SODIUM CHLORIDE FLUSH 0.9% 10 ML SYRINGE IVP SCH ×3 (05:09→22:06)
[2017-01-05 06:09] LABS: BASOPHILS # (AUTO) 0.1 10^3/uL (0.0-0.1); BASOPHILS % (AUTO) 0.3 %; EOSINOPHILS # (AUTO) 0.2 10^3/uL (0.0-0.7); HCT - HEMATOCRIT 32.2 % (37.0-47.0); HGB - HEMOGLOBIN 9.7 g/dL (12.0-16.0); LYMPHOCYTES # (AUTO) 1.5 10^3/uL (1.5-3.5); LYMPHOCYTES % (AUTO) 8.9 %; MEAN CORPUSCULAR HEMOGLOBIN 21.5 pg (27.0-31.0); MEAN CORPUSCULAR VOLUME 71.5 fL (81.0-99.0); MONOCYTES # (AUTO) 0.7 10^3/uL (0.0-1.0); MONOCYTES % (AUTO) 4.3 %; NEUTROPHILS # (AUTO) 14.7 10^3/uL (1.5-6.6); NEUTROPHILS % (AUTO) 85.5 %; NUCLEATED RED BLOOD CELLS AUTO 0.1 /100WBC; RED BLOOD COUNT 4.51 10^6/uL (4.20-5.40); RED CELL DISTRIBUTION WIDTH 24.6 % (12.0-15.0); UNCORRECTED WHITE BLOOD COUNT 17.2 x10^3/uL; WHITE BLOOD COUNT 17.2 x10^3/uL (4.8-10.8)
[2017-01-05 06:14] LABS: CALCIUM 9.1 mg/dL (8.5-10.3); CREATININE 0.9 mg/dL (0.4-1.0); POTASSIUM 3.5 mmol/L (3.5-5.0)
[2017-01-05] MEDS: PANTOPRAZOLE 40 MG TABLET PO SCH (06:25)
[2017-01-05 06:42] LABS: NP AUTO DIFFERENTIAL? NO; NP MAN DIFFERENTIAL? YES; PLATELET ESTIMATE, MANUAL NORMAL (130-450,000) (NORMAL); PLATELET MORPHOLOGY 1+ LARGE PLATELETS (NORMAL)
[2017-01-05] MEDS: BUDESONIDE 0.5 MG/2 ML NEB INH SCH ×2 (07:30→19:30)
[2017-01-05] MEDS: IPRATROPIUM/ALBUTEROL 3 ML NEB INH SCH ×4 (07:30→19:30)
[2017-01-05] MEDS: FORMOTEROL FUMARATE NEB 20 MCG/2 ML INH SCH ×2 (07:30→19:30)
[2017-01-05] MEDS: SACCHAROMYCES BOULARDII 250 MG CAPSULE PO SCH ×2 (08:52→17:47)
[2017-01-05] MEDS: POLYETHYLENE GLYCOL 3350 17 GM PACKET PO SCH (08:52)
[2017-01-05] MEDS: SENNA 8.6 MG TABLET PO SCH (08:53)
[2017-01-05] MEDS: ALLOPURINOL 100 MG TABLET PO SCH (08:53)
[2017-01-05] MEDS: TOLTERODINE LA 2 MG CAPSULE PO SCH (08:53)
[2017-01-05] MEDS: predniSONE 20 MG TABLET PO SCH (08:53)
[2017-01-05] MEDS: ESCITALOPRAM 10 MG TABLET PO SCH (08:53)
[2017-01-05] MEDS: DOCUSATE SODIUM 250 MG CAPSULE PO SCH (08:53)
[2017-01-05] MEDS: guaiFENesin 600 MG TABLET PO SCH ×2 (08:53→22:06)
[2017-01-05] MEDS: CEFEPIME 2 GM in SODIUM CHLORIDE 0.9% MINIBAG 100 ML IV SCH ×2 (08:54→22:05)
[2017-01-05] MEDS: ENOXAPARIN 40 MG/0.4 ML SYRINGE SUBQ SCH (08:54)
[2017-01-05] MEDS: LINACLOTIDE 145 MCG PO SCH (08:55)
--- NOTE | 2017-01-05 14:15 | PROVIDER PROGRESS NOTE ---
Assessment/Plan - Problem List (1) CAP (community acquired pneumonia) Assessment/Plan: She has sx improved. She had increase in the pneumonia on CXR yesterday. She is on room air yesterday. She had fever yesterday as well. Will continue the antibx IV another day - Current Meds Current Meds: Current Medications Generic Name Dose Route Start Last Admin Trade Name Freq PRN Reason Stop Dose Admin Acetaminophen 650 mg 12/31/16 13:54 01/01/17 04:07 Tylenol PO 650 mg Q4HR PRN Administration Pain 1 to 4 Albuterol/Ipratropium 3 ml 01/03/17 11:00 01/05/17 11:00 Duoneb INH 01/10/17 10:59 3 ml RTQID ELENA Administration Allopurinol 300 mg 01/01/17 09:00 01/05/17 08:53 Zyloprim PO 300 mg DAILY ELENA Administration Budesonide 0.5 mg 12/31/16 19:00 01/05/17 07:30 Pulmicort INH 0.5 mg RTBID ELENA Administration Docusate Sodium 250 - 500 mg 01/04/17 09:00 01/05/17 08:53 Colace 250mg Capsule PO 500 mg DAILY ELENA Administration Enoxaparin Sodium 40 mg 01/01/17 09:00 01/05/17 08:54 Lovenox SUBQ Not Given DAILY ELENA Escitalopram Oxalate 20 mg 01/01/17 09:00 01/05/17 08:53 Lexapro PO 20 mg DAILY ELENA Administration Formoterol Fumarate 20 mcg 12/31/16 19:00 01/05/17 07:30 Perforomist INH 20 mcg RTBID ELENA Administration Guaifenesin 600 mg 01/01/17 10:00 01/05/17 08:53 Mucinex PO 600 mg BID ELENA Administration Guaifenesin/Codeine Phosphate 5 ml 01/01/17 09:55 01/05/17 00:36 Robitussin Ac PO 5 ml Q6HR PRN Administration Cough Hydroxyurea 500 mg 01/01/17 19:00 01/04/17 08:39 Hydrea PO 500 mg [id number] ELENA Administration Cefepime HCl 2 gm/ Sodium 100 mls @ 200 mls/hr 01/04/17 21:00 01/05/17 08:54 Chloride IV 200 mls/hr BID ELENA Administration Vancomycin HCl 1 gm/ Sodium 250 mls @ 167 mls/hr 01/04/17 17:00 01/05/17 05:00 Chloride IV 167 mls/hr Q12H ELENA Administration Montelukast Sodium 10 mg 12/31/16 21:00 01/04/17 20:22 Singulair PO 10 mg QPM ELENA Administration Oxycodone HCl 5 mg 12/31/16 13:54 01/04/17 08:48 Roxicodone PO 5 mg Q4HR PRN Administration Pain 5 to 7 Oxycodone HCl 10 mg 12/31/16 13:54 01/04/17 10:11 Roxicodone PO 10 mg Q4HR PRN Administration Pain 8 to 10 Pantoprazole Sodium 40 mg 01/01/17 07:00 01/05/17 06:25 Protonix PO 40 mg QDAC ELENA Administration (Linaclotide [ 1 each 01/04/17 09:00 01/05/17 08:55 Linzess] 145 Mcg) PO Not Given Tab DAILY ELENA Polyethylene Glycol 17 gm 01/01/17 09:00 01/05/17 08:52 Miralax PO 17 gm DAILY ELENA Administration Prednisone 40 mg 01/03/17 12:00 01/05/17 08:53 Deltasone PO 40 mg DAILYWM ELENA Administration Saccharomyces Boulardii 250 mg 12/31/16 17:00 01/05/17 08:52 Florastor PO 250 mg BIDWM ELENA Administration Senna 8.6 - 17.2 mg 01/04/17 09:00 01/05/17 08:53 Senokot PO 17.2 mg DAILY ELENA Administration Sodium Chloride 10 ml 12/31/16 13:54 01/02/17 13:51 Normal Saline Flush 0.9% IVP 10 ml PRN PRN Administration NEEDED PER PROVIDER ORDERS Sodium Chloride 10 ml 12/31/16 22:00 01/05/17 05:09 Normal Saline Flush 0.9% IVP 10 ml Q8HR ELENA Administration Tolterodine Tartrate 4 mg 01/01/17 09:00 01/05/17 08:53 Detrol La PO 4 mg DAILY ELENA Administration - Lab Result Fish Bone Diagrams: 01/05/17 05:30 01/05/17 05:30 Subjective - Subjective Patient Reports: Feeling Better, Resting Comfortably Nursing Reports: Shortness of Breath Objective Vital Signs: Vital Signs - 24 hr 01/04/17 01/04/17 01/04/17 15:00 20:34 21:38 Temperature 37.1 C Heart Rate 88 98 Heart Rate [ 92 Brachial] Respiratory 18 20 18 Rate Blood Pressure 108/64 [Left Brachial artery] O2 Saturation 94 01/05/17 01/05/17 01/05/17 00:05 07:30 11:00 Temperature 36.6 C Heart Rate 76 85 Heart Rate [ 86 Brachial] Respiratory 16 18 18 Rate Blood Pressure 122/66 [Left Brachial artery] O2 Saturation 95 Oxygen O2 Source Room air I&O (Last 24 Hrs): Intake and Output Totals x24h 01/03/17 01/04/17 01/05/17 23:59 23:59 23:59 Intake Total 5219 2440 1566 Output Total 4275 1600 Balance 357 118 8334 General: Alert, Oriented x3, Cooperative HEENT: PERRLA, EOMI Neck: No JVD, No thyromegaly Neuro: Alert, Oriented Times 3 Cardiovascular: Regular rate, No murmurs Respiratory: No respiratory distress, Rales (Rales R lung lower 1/2) Skin: No rashes, No breakdown - Results Results: Laboratory Results WBC 17.2 x10^3/uL (4.8-10.8) H 01/05/17 05:30 RBC 4.51 10^6/uL (4.20-5.40) 01/05/17 05:30 Hgb 9.7 g/dL (12.0-16.0) L 01/05/17 05:30 Hct 32.2 % (37.0-47.0) L 01/05/17 05:30 MCV 71.5 fL (81.0-99.0) L 01/05/17 05:30 MCH 21.5 pg (27.0-31.0) L 01/05/17 05:30 MCHC 30.0 g/dL (32.0-36.0) L 01/05/17 05:30 RDW 24.6 % (12.0-15.0) H 01/05/17 05:30 Plt Count 341 10^3/uL (130-450) 01/05/17 05:30 MPV 8.0 fL (7.9-10.8) 01/05/17 05:30 Neut # 14.7 10^3/uL (1.5-6.6) H 01/05/17 05:30 Lymph # 1.5 10^3/uL (1.5-3.5) 01/05/17 05:30 [place] # 0.7 10^3/uL (0.0-1.0) 01/05/17 05:30 Eos # 0.2 10^3/uL (0.0-0.7) 01/05/17 05:30 Baso # 0.1 10^3/uL (0.0-0.1) 01/05/17 05:30 Absolute Nucleated RBC 0.02 x10^3/uL 01/05/17 05:30 Band Neuts % (Manual) Not Reportable 01/05/17 05:30 Nucleated RBCs 0.1 /100WBC 01/05/17 05:30 Differential Comment MANUAL=AUTO DIFF 01/05/17 05:30 Manual Slide Review Indicated 01/04/17 05:24 Platelet Estimate NORMAL (130-450,000) (NORMAL) 01/05/17 05:30 Platelet Morphology 1+ LARGE PLATELETS (NORMAL) 01/05/17 05:30 RBC Morph Micro Appear 2+ ANISOCYTOSIS (NORMAL) 1+ POLYCHROMASIA (NORMAL) 1 + OVALOCYTES (NORMAL) 1+ SCHISTOCYTES (NORMAL) 1+ TEARDROP CELLS (NORMAL) 01/01/17 05:54 RBC Morph Micro Appear 2+ ANISOCYTOSIS (NORMAL) 1+ POLYCHROMASIA (NORMAL) 1 + OVALOCYTES (NORMAL) 1+ SCHISTOCYTES (NORMAL) 1+ TEARDROP CELLS (NORMAL) 01/01/17 05:54 RBC Morph Micro Appear 2+ ANISOCYTOSIS (NORMAL) 1+ POLYCHROMASIA (NORMAL) 1 + OVALOCYTES (NORMAL) 1+ SCHISTOCYTES (NORMAL) 1+ TEARDROP CELLS (NORMAL) 01/01/17 05:54 RBC Morph Micro Appear 2+ ANISOCYTOSIS (NORMAL) 1+ POLYCHROMASIA (NORMAL) 1 + OVALOCYTES (NORMAL) 1+ SCHISTOCYTES (NORMAL) 1+ TEARDROP CELLS (NORMAL) 01/01/17 05:54 RBC Morph Micro Appear 2+ ANISOCYTOSIS (NORMAL) 2+ OVALOCYTES (NORMAL) 1+ POLYCHROMASIA (NORMAL) 01/03/17 05:25 RBC Morph Micro Appear 2+ ANISOCYTOSIS (NORMAL) 2+ OVALOCYTES (NORMAL) 1+ POLYCHROMASIA (NORMAL) 01/03/17 05:25 RBC Morph Micro Appear 2+ ANISOCYTOSIS (NORMAL) 2+ OVALOCYTES (NORMAL) 1+ POLYCHROMASIA (NORMAL) 01/03/17 05:25 RBC Morph Micro Appear 2+ OVALOCYTES (NORMAL) 2+ ANISOCYTOSIS (NORMAL) 05:24 RBC Morph Micro Appear 2+ OVALOCYTES (NORMAL) 2+ ANISOCYTOSIS (NORMAL) 05:24 RBC Morph Micro Appear 2+ OVALOCYTES (NORMAL) 2+ ANISOCYTOSIS (NORMAL) 1+ MICROCYTOSIS (NORMAL) 1+ TEARDROP CELLS (NORMAL) 01/05/17 05:30 RBC Morph Micro Appear 2+ OVALOCYTES (NORMAL) 2+ ANISOCYTOSIS (NORMAL) 1+ MICROCYTOSIS (NORMAL) 1+ TEARDROP CELLS (NORMAL) 01/05/17 05:30 RBC Morph Micro Appear 2+ OVALOCYTES (NORMAL) 2+ ANISOCYTOSIS (NORMAL) 1+ MICROCYTOSIS (NORMAL) 1+ TEARDROP CELLS (NORMAL) 01/05/17 05:30 RBC Morph Micro Appear 2+ OVALOCYTES (NORMAL) 2+ ANISOCYTOSIS (NORMAL) 1+ MICROCYTOSIS (NORMAL) 1+ TEARDROP CELLS (NORMAL) 01/05/17 05:30 Sodium 143 mmol/L (135-145) 01/05/17 05:30 Potassium 3.5 mmol/L (3.5-5.0) 01/05/17 05:30 Chloride 108 mmol/L (101-111) 01/05/17 05:30 Carbon Dioxide 28 mmol/L (21-32) 01/05/17 05:30 Anion Gap 7.0 (6-13) 01/05/17 05:30 BUN 15 mg/dL (6-20) 01/05/17 05:30 Creatinine 0.9 mg/dL (0.4-1.0) 01/05/17 05:30 Estimated GFR (MDRD) 62 (>89) L 01/05/17 05:30 Glucose 96 mg/dL (70-100) 01/05/17 05:30 Lactic Acid 0.7 mmol/L (0.5-2.2) 12/31/16 12:48 Calcium 9.1 mg/dL (8.5-10.3) 01/05/17 05:30 Total Bilirubin 0.9 mg/dL (0.2-1.0) 12/31/16 12:48 AST 20 IU/L (10-42) 12/31/16 12:48 ALT 13 IU/L (10-60) 12/31/16 12:48 Alkaline Phosphatase 69 IU/L (42-121) 12/31/16 12:48 Total Protein 7.6 g/dL (6.7-8.2) 12/31/16 12:48 Albumin 3.8 g/dL (3.2-5.5) 12/31/16 12:48 Globulin 3.8 g/dL (2.1-4.2) 12/31/16 12:48 Albumin/Globulin Ratio 1.0 (1.0-2.2) 12/31/16 12:48 Lipase 20 U/L (22-51) L 12/31/16 12:48
[2017-01-05] MEDS ORDERED: SODIUM CHLORIDE 0.9% 250 ML IV ONE (17:22)
[2017-01-05] MEDS: SODIUM CHLORIDE FLUSH 0.9% 10 ML SYRINGE IVP PRN (17:47)
[2017-01-05] MEDS: MONTELUKAST 10 MG TABLET PO SCH (22:06)
[2017-01-06] MEDS: VANCOMYCIN INJ 1 GM in SODIUM CHLORIDE 0.9% 250 ML IV SCH (05:21)
[2017-01-06] MEDS: SODIUM CHLORIDE FLUSH 0.9% 10 ML SYRINGE IVP SCH ×2 (06:10→14:00)
[2017-01-06] MEDS: PANTOPRAZOLE 40 MG TABLET PO SCH (06:10)
[2017-01-06] MEDS: BUDESONIDE 0.5 MG/2 ML NEB INH SCH (07:45)
[2017-01-06] MEDS: IPRATROPIUM/ALBUTEROL 3 ML NEB INH SCH ×3 (07:45→15:30)
[2017-01-06] MEDS: FORMOTEROL FUMARATE NEB 20 MCG/2 ML INH SCH (07:45)
[2017-01-06] MEDS ORDERED: VANCOMYCIN INJ 0.75 GM in SODIUM CHLORIDE 0.9% 250 ML IV SCH (09:00)
[2017-01-06] MEDS: CEFEPIME 2 GM in SODIUM CHLORIDE 0.9% MINIBAG 100 ML IV SCH (09:54)
[2017-01-06] MEDS: ENOXAPARIN 40 MG/0.4 ML SYRINGE SUBQ SCH (09:54)
[2017-01-06] MEDS: HYDROXYUREA 500 MG CAPSULE PO SCH (09:55)
[2017-01-06] MEDS: ALLOPURINOL 100 MG TABLET PO SCH (09:55)
[2017-01-06] MEDS: ESCITALOPRAM 10 MG TABLET PO SCH (09:55)
[2017-01-06] MEDS: predniSONE 20 MG TABLET PO SCH (09:55)
[2017-01-06] MEDS: TOLTERODINE LA 2 MG CAPSULE PO SCH (09:56)
[2017-01-06] MEDS: SACCHAROMYCES BOULARDII 250 MG CAPSULE PO SCH (09:56)
[2017-01-06] MEDS: SENNA 8.6 MG TABLET PO SCH (09:58)
[2017-01-06] MEDS: DOCUSATE SODIUM 250 MG CAPSULE PO SCH (09:58)
[2017-01-06] MEDS: POLYETHYLENE GLYCOL 3350 17 GM PACKET PO SCH (09:58)
[2017-01-06] MEDS: LINACLOTIDE 145 MCG PO SCH (10:33)
[2017-01-06] MEDS: guaiFENesin 600 MG TABLET PO SCH (10:33)
--- NOTE | 2017-01-06 11:49 | Discharge Plan ---
Discharge Plan Disposition: 01 Home, Self Care Condition: Good Prescriptions: Levofloxacin [Levaquin] 500 mg PO DAILY #6 tablet guaiFENesin [Mucinex] 600 mg PO BID PRN #20 tablet PRN Reason: Cough Diet: Regular Activity Restrictions: Activity as Tolerated Shower Restrictions: No Driving Restrictions: No Weight Bearing: Full Weight Instruction Topics: Vaccination Pneumococcal No Smoking: If you smoke, Please STOP! Call for help. Follow-up with: Iglesia Diaz MD [Primary Care Provider] - 1 Week
[2017-01-06] MEDS ORDERED: VANCOMYCIN INJ 1 GM in SODIUM CHLORIDE 0.9% 250 ML IV SCH (12:00)
[2017-01-06 16:41] VITALS: BP 114/64
--- NOTE | 2017-01-07 07:05 | DISCHARGE SUMMARY ---
DATE OF ADMISSION: 12/31/2016 DATE OF DISCHARGE: 01/06/2017 PRIMARY CARE PHYSICIAN: Iglesia Diaz MD. ADMISSION DIAGNOSES 1. Sepsis. 2. Community-acquired pneumonia. 3. Acute kidney injury. 4. Hyponatremia. 5. Asthma without exacerbation. 6. Depression. DISCHARGE DIAGNOSES 1. Sepsis, resolved. 2. Community-acquired pneumonia, improved on antibiotics. 3. Acute kidney injury, resolved. 4. Hyponatremia, improved. 5. Asthma with exacerbation during hospitalization. 6. Depression, on medication. SPECIAL PROCEDURES: None. CONSULTATIONS: None. HOSPITAL COURSE AND MANAGEMENT: Initial presentation, hospital emergency evaluation, and hospitalist plan are well described in the history and physical , see copy of same. SUMMARY: This is a 66-year-old female with past medical history significant for polycythemia rubra vera, asthma, paresthesias with possible multiple sclerosis, gout, depression, and migraines who presented to the emergency department with weakness. The patient had about 2 weeks of not feeling well. Her initial symptoms included weakness and fatigue. She is having increasing shortness of breath. She did go to the emergency department in another hospital and was told she had sinusitis. She did not get antibiotics at that time, although later she stated she did get a prescription, but did not take the antibiotic. The patient presented to this emergency department with a temperature of 39.4 and hypoxic, O2 saturation below 88%, requiring 4 liters of oxygen. She was also tachycardic at 120s. She had a leukocytosis of 15,000. The patient was found to be septic and have pneumonia. The pneumonia was bibasilar. The patient was started on ceftriaxone and azithromycin. The patient continued to need oxygen during the hospital stay and slowly improved. Her oxygenation improved. She was down to 1 liter of oxygen, but had continued muscle aches and cough until the day before discharge. The patient's antibiotics were switched to vancomycin and cefepime on day 5. The oxygen then improved over the next 24 hours and she was able move around more and was on room air. The chest x-ray repeat showed bibasilar infiltrates, which was worse on the right. She had no further fevers. PHYSICAL EXAMINATION ON DAY OF DISCHARGE GENERAL: Woman of stated age, appeared well nourished. VITAL SIGNS: Temperature of 37.0, 93, 114/64, respirations 18, room air sat 98%. EYES: EOM within normal limits, PERRL, nonicteric. MOUTH AND THROAT: Moist mucous membranes. No other pathology noted in mouth or pharynx. NECK: Supple. Nontender. No lymphadenopathy. No thyromegaly. No JVD appreciated. CHEST WALL: Nontender. Symmetric. BREASTS: No breast exam done. HEART: Sinus rhythm. No murmur, rubs, clicks heard. LUNGS: Have only scattered occasional wheeze. No rales, no rhonchi. Good air movement. ABDOMEN: Soft, nontender. VASCULAR: Shows 1+ pulses posterior tibial. Normal capillary refill. SKIN: No suspicious lesions. NEUROLOGICAL: Cognitive intact. Cranial nerves intact. Motor intact. LABORATORY DATA: The patient had a steroid effect, which was improving from 18.7 peak to 7.2, 9.7 and 32 hemoglobin and hematocrit. The patient's platelets are 341. Sodium 143, potassium 3.5, chloride 108, CO2 28, BUN 16, creatinine 0.9. The patient's glucose was 96 with a calcium of 9.1. ALLERGIES AT DISCHARGE 1. ERYTHROMYCIN. 2. LIDOCAINE. 3. NSAIDS. 4. PENICILLINS. 5. SULFA. 6. POSSIBLY ALSO TRIMETHOPRIM. MEDICATIONS FOR HOME 1. Hydroxyurea 500 mg 3 times a week. 2. Naratriptan 2.5 mg p.r.n. 3. Advair 250/50 one b.i.d. p.r.n. 4. Singulair 10 mg q.p.m. 5. Dexilant 60 mg daily. 6. Lexapro 20 mg daily. 7. Allopurinol 300 mg daily. 8. Tolterodine 4 mg daily. 9. Linzess 145 mcg daily. 10. Mucinex 600 mg b.i.d. as needed. 11. Levaquin 500 mg daily for 6 days. The patient is to follow up with Dr. Diaz in the next week. Suggest a followup chest x-ray in 2-3 weeks. Time spent in discharge activities, including collaboration with case management and Respiratory, discharge planning, as well as nursing was 35 minutes. The patient was examined on the day of discharge as noted. Also note that the patient said that she had Ventolin to be verified by Dr. Diaz and refilled if needed. The patient was also instructed to use her spacer as she feels like she often has difficulty in getting the medication inhaled into her lower lungs. This is especially true with the cough reflex she has had with deep breathing during this hospitalization and illness. JOB #: [id number] EXT JOB #:[id number] HENRY
== END 2017-01-06 16:40 | disposition home or self-care (01) | DRG 871 ==
LOC: EDBD → EDUNIT# → ED 12:25 → MS 13:54
PROVIDERS: ADMIT Internal Medicine; ATTEND Internal Medicine
DX: J18.1 Lobar pneumonia, unspecified organism (principal); J45.909 Unspecified asthma, uncomplicated; A41.9 Sepsis, unspecified organism; J18.9 Pneumonia, unspecified organism; N17.9 Acute kidney failure, unspecified; E87.1 Hypo-osmolality and hyponatremia; J45.901 Unspecified asthma with (acute) exacerbation; F32.9 Major depressive disorder, single episode, unspecified; D45 Polycythemia vera; G35 Multiple sclerosis; G43.909 Migraine, unspecified, not intractable, without status migrainosus; M10.9 Gout, unspecified; Z79.51 Long term (current) use of inhaled steroids; Z79.899 Other long term (current) drug therapy
CPT/HCPCS: 36415; 71020; 80048; 80053; 83605; 83690; 85025; 87040; 94640; 94664; 99283; 99284; 99285

== ENCOUNTER 2017-01-18 11:06 | Outpatient (CLI) | payer MEDICARE, OTHER ==
--- NOTE | 2017-01-18 13:01 | XRAY Report ---
TWO VIEW CHEST: 01/18/2017 CLINICAL INDICATION: Followup pneumonia. COMPARISON: 01/04/2017. FINDINGS: Frontal and lateral views of the chest demonstrate a normal cardiac silhouette. The previo usly seen bibasilar infiltrates and left effusion have resolved. No pneumothorax is present. IMPRESSION: NORMAL CHEST. RESOLUTION OF PREVIOUSLY SEEN INFILTRATES. JOB #: [id number] EXT JOB #:[id number]
== END 2017-01-18 11:07 | disposition home or self-care (01) ==
LOC: DI 11:06
PROVIDERS: ATTEND Family Medicine
DX: J15.9 Unspecified bacterial pneumonia (principal)
CPT/HCPCS: 71020

== ENCOUNTER 2017-05-10 14:26 | Emergency (ER) | payer MEDICARE, OTHER ==
[2017-05-10] MEDS ORDERED: oxyCOD/ACETAMIN 5 MG/325 MG TABLET PO STA (15:43)
--- NOTE | 2017-05-10 15:45 | ED Physician Documentation ---
History of Present Illness - Stated complaint Stated Complaint: BODY ACHE/FEVER - Chief complaint Chief Complaint: Resp - History obtained from History obtained from: Patient - History of Present Illness Timing: Other (In December was hospitalized with severe pneumonia, yesterday had a pneumonia shot and overnight developed chills and body aches and fever with maximum temperature of 101, the body aches are not responding to Tylenol and aspirin. She denies any cough, sore throat, runny nose, urinary complaints, stomach upset, shortness of breath, or rash. No recent travel.) Review of Systems Constitutional: reports: Fever, Chills, Fatigue Nose: denies: Rhinorrhea / runny nose, Congestion Cardiac: denies: Chest pain / pressure Respiratory: denies: Dyspnea, Cough GI: denies: Abdominal Pain, Vomiting, Diarrhea : denies: Dysuria, Frequency PD PAST MEDICAL HISTORY - Past Medical History Cardiovascular: None Respiratory: Asthma Neuro: Multiple sclerosis Endocrine/Autoimmune: Other GI: Chronic constipation : Incontinence HEENT: None Psych: Depression Musculoskeletal: Gout Derm: Rosacea - Past Surgical History Past Surgical History: No - Present Medications Home Medications: Ambulatory Orders Medication Instructions Recorded Confirmed Allopurinol 300 mg PO DAILY 12/31/16 05/10/17 Dexlansoprazole [Dexilant] 60 mg PO DAILY 12/31/16 05/10/17 Escitalopram Oxalate [Lexapro] 20 mg PO DAILY 12/31/16 05/10/17 Fluticasone/Salmeterol [Advair 1 each IH BID 12/31/16 05/10/17 250-50 Diskus] Fluticasone/Salmeterol [Advair 1 puffs INH BID 12/31/16 05/10/17 250-50 Diskus] Linaclotide [Linzess] 145 mcg PO DAILY 12/31/16 05/10/17 Montelukast [Singulair] 10 mg PO QPM 12/31/16 05/10/17 Naratriptan HCl [Amerge] 2.5 mg PO ONCE PRN 12/31/16 05/10/17 Tolterodine Tartrate [Tolterodine 4 mg PO DAILY 12/31/16 05/10/17 Tartrate ER] Hydroxyurea [Hydrea] 500 mg PO .TIW 01/02/17 05/10/17 Azithromycin [Zithromax] 250 mg PO DAILY #4 tablet 05/10/17 Oxycodone HCl/Acetaminophen 1 - 2 tab PO Q4H PRN #10 tablet 05/10/17 [Percocet 5-325 mg Tablet] - Allergies Allergies/Adverse Reactions: Allergies Allergy/AdvReac Type Severity Reaction Status Date / Time erythromycin base Allergy Unknown Verified 05/10/17 14:41 lidocaine Allergy Unknown Verified 05/10/17 14:41 NSAIDS (Non-Steroidal Allergy Unknown Verified 05/10/17 14:41 Anti-Inflamma orphenadrine Allergy Unknown Verified 05/10/17 14:41 Penicillins Allergy Edema Verified 05/10/17 14:41 Sulfa (Sulfonamide Allergy Unknown Verified 05/10/17 14:41 Antibiotics) - Social History Does the pt smoke?: No Smoking Status: Never smoker Does the pt drink ETOH?: No Does the pt have substance abuse?: No - Immunizations Immunizations: TDAP >10years/unknown - POLST Patient has POLST: No POLST Status: Full Code PD ED PE NORMAL - Vitals Vital signs reviewed: Yes - General General: Alert and oriented X 3, No acute distress - HEENT HEENT: PERRL, EOMI, Pharynx benign - Neck Neck: Supple, no meningeal sign, No bony TTP - Cardiac Cardiac: RRR, No murmur - Respiratory Respiratory: No respiratory distress, Clear bilaterally - Abdomen Abdomen: Normal bowel sounds, Soft, Non tender - Back Back: No CVA TTP, No spinal TTP - Derm Derm: Normal color, Warm and dry - Extremities Extremities: No edema, No calf tenderness / cord - Neuro Neuro: Alert and oriented X 3, Normal speech - Psych Psych: Normal mood, Normal affect Results - Vitals Vitals: Vital Signs - 24 hr 05/10/17 05/10/17 14:37 16:58 Temperature 37.5 C Heart Rate 68 85 Respiratory 16 16 Rate Blood Pressure 114/59 L 112/53 L O2 Saturation 100 96 Oxygen O2 Source Room air - Labs Labs: Laboratory Tests 05/10/17 05/10/17 05/10/17 15:58 16:03 16:07 WBC 14.8 H RBC 5.11 Hgb 10.6 L Hct 35.9 L MCV 70.2 L MCH 20.8 L MCHC 29.6 L RDW 22.5 H Plt Count 395 MPV 8.5 Neut # 12.3 H Lymph # 1.2 L Sharp # 0.7 Eos # 0.4 Baso # 0.1 Absolute Nucleated RBC 0.02 Nucleated RBCs 0.2 Sodium Potassium Chloride Carbon Dioxide Anion Gap BUN Creatinine Estimated GFR (MDRD) Glucose Lactic Acid Calcium Total Bilirubin AST ALT Alkaline Phosphatase Total Protein Albumin Globulin Albumin/Globulin Ratio Lipase Urine Color YELLOW Urine Clarity CLEAR Urine pH 6.5 Ur Specific Joffre 1.010 Urine Protein NEGATIVE Urine Glucose (UA) NEGATIVE Urine Ketones NEGATIVE Urine Occult Blood NEGATIVE Urine Nitrite NEGATIVE Urine Bilirubin NEGATIVE Urine Urobilinogen 0.2 (NORMAL) Ur Leukocyte Esterase NEGATIVE Ur Microscopic Review NOT INDICATED Urine Culture Comments NOT INDICATED Influenza A (Rapid) Negative Influenza B (Rapid) Negative Influenza Types A,B Ag - 05/10/17 05/10/17 16:07 16:07 WBC RBC Hgb Hct MCV MCH MCHC RDW Plt Count MPV Neut # Lymph # Sharp # Eos # Baso # Absolute Nucleated RBC Nucleated RBCs Sodium 134 L Potassium 3.8 Chloride 103 Carbon Dioxide 25 Anion Gap 6.0 BUN 13 Creatinine 1.1 H Estimated GFR (MDRD) 49 L Glucose 101 H Lactic Acid 1.1 Calcium 8.8 Total Bilirubin 1.0 AST 18 ALT 10 Alkaline Phosphatase 54 Total Protein 7.1 Albumin 3.9 Globulin 3.2 Albumin/Globulin Ratio 1.2 Lipase 24 Urine Color Urine Clarity Urine pH Ur Specific Joffre Urine Protein Urine Glucose (UA) Urine Ketones Urine Occult Blood Urine Nitrite Urine Bilirubin Urine Urobilinogen Ur Leukocyte Esterase Ur Microscopic Review Urine Culture Comments Influenza A (Rapid) Influenza B (Rapid) Influenza Types A,B Ag - Rads (name of study) 2v chest Radiology: EMP read contemporaneously (NAD) PD MEDICAL DECISION MAKING - ED course ED course: 67-year-old woman presents with fever of unknown origin. This was the day after her pneumonia vaccine. There is no evidence of cellulitis and no focal infection present by history or physical. She does have a leukocytosis, however that may be from her underlying polycythemia vera and treatment. It looks like she has a chronic leukocytosis and chronic anemia. However given the leukocytosis I did opt to treat with antibiotics despite no significant source. Departure - Departure Disposition: 01 Home, Self Care Clinical Impression: FUO (fever of unknown origin) Condition: Good Record reviewed to determine appropriate education?: Yes Instructions: ED Fever Unconf Cause Prescriptions: Oxycodone HCl/Acetaminophen [Percocet 5-325 mg Tablet] 1 - 2 tab PO Q4H PRN #10 tablet PRN Reason: Pain Azithromycin [Zithromax] 250 mg PO DAILY #4 tablet Comments: Call your doctor to arrange a follow-up appointment, make the next available appointment. In the interim, return anytime if worse or if new symptoms develop.
[2017-05-10] MEDS ORDERED: oxyCOD/ACETAMIN 5 MG/325 MG TABLET PO ONE (15:53)
[2017-05-10 16:20] LABS: BILIRUBIN,URINE NEGATIVE (NEGATIVE); PH,URINE 6.5 PH (5.0-7.5); UA CHARGE (STRIP ONLY) YES; UR CULTURE IF IND NOT INDICATED
[2017-05-10 16:29] LABS: ALBUMIN/GLOBULIN RATIO 1.2 (1.0-2.2); BASOPHILS # (AUTO) 0.1 10^3/uL (0.0-0.1); CALCIUM 8.8 mg/dL (8.5-10.3); CREATININE 1.1 mg/dL (0.4-1.0); EOSINOPHILS # (AUTO) 0.4 10^3/uL (0.0-0.7); EOSINOPHILS % (AUTO) 2.8 %; HCT - HEMATOCRIT 35.9 % (37.0-47.0); HGB - HEMOGLOBIN 10.6 g/dL (12.0-16.0); LYMPHOCYTES # (AUTO) 1.2 10^3/uL (1.5-3.5); LYMPHOCYTES % (AUTO) 8.1 %; MEAN CORPUSCULAR HEMOGLOBIN 20.8 pg (27.0-31.0); MEAN CORPUSCULAR HGB CONC 29.6 g/dL (32.0-36.0); MEAN CORPUSCULAR VOLUME 70.2 fL (81.0-99.0); MEAN PLATELET VOLUME 8.5 fL (7.9-10.8); MONOCYTES # (AUTO) 0.7 10^3/uL (0.0-1.0); NEUTROPHILS # (AUTO) 12.3 10^3/uL (1.5-6.6); NEUTROPHILS % (AUTO) 83.1 %; NUCLEATED RED BLOOD CELLS AUTO 0.2 /100WBC; POTASSIUM 3.8 mmol/L (3.5-5.0); RED BLOOD COUNT 5.11 10^6/uL (4.20-5.40); RED CELL DISTRIBUTION WIDTH 22.5 % (12.0-15.0); TOTAL PROTEIN 7.1 g/dL (6.7-8.2); UNCORRECTED WHITE BLOOD COUNT 14.8 x10^3/uL; WHITE BLOOD COUNT 14.8 x10^3/uL (4.8-10.8)
--- NOTE | 2017-05-10 16:56 | XRAY Preliminary Report ---
Exam: XR Chest 2 View PA/LAT IMPRESSION: No acute disease. [facility] SITE ID: [id number]
[2017-05-10] MEDS ORDERED: AZITHROMYCIN 250 MG TABLET PO STA (16:58)
[2017-05-10 16:59] VITALS: BP 112/53
--- NOTE | 2017-05-10 16:59 | XRAY Report ---
EXAM: CHEST RADIOGRAPHY EXAM DATE: 05/10/2017 04:40 PM. CLINICAL HISTORY: Fever. COMPARISON: 01/18/2017. TECHNIQUE: 2 views. FINDINGS: Lungs/Pleura: No localized infiltrate, consolidation, effusion, or pneumothorax. Mediastinum: Normal heart size, unchanged. Upper lobe vessels not distended. Other: Surgical clips in right breast. IMPRESSION: No acute disease. [facility] Referring Provider Line: [phone] SITE ID: [id number]
[2017-05-10] MEDS ORDERED: AZITHROMYCIN 250 MG TABLET PO ONE (17:17)
== END 2017-05-10 17:18 | disposition home or self-care (01) ==
LOC: ED 14:26
DX: R50.9 Fever, unspecified (principal); D72.829 Elevated white blood cell count, unspecified
CPT/HCPCS: 36415; 71020; 80053; 81003; 83605; 83690; 85025; 87275; 87276; 99283; A9270; 81001; 87086

== ENCOUNTER 2017-08-23 15:20 | Outpatient (CLI) | payer MEDICARE, OTHER ==
--- NOTE | 2017-08-24 18:20 | XRAY Report ---
DATE OF SERVICE: 08/23/2017 TWO VIEW CHEST: 08/23/2017 CLINICAL INDICATION: Pneumonia. COMPARISON: 05/10/2017 Frontal and lateral views of the chest demonstrate a normal cardiac silhouette. There is patchy righ t upper lobe airspace disease present, compatible with infiltrate. No effusion or pneumothorax is present. IMPRESSION: Patchy right upper lobe infiltrate. TD: 08/24/2017 19:19
== END 2017-08-23 15:21 | disposition home or self-care (01) ==
LOC: DI 15:20
PROVIDERS: ATTEND Family Medicine
DX: J18.9 Pneumonia, unspecified organism (principal)
CPT/HCPCS: 71046

== ENCOUNTER 2020-04-01 15:45 | Outpatient (CLI) | payer MEDICARE, OTHER | END 2020-04-01 15:46 | disposition critical access hospital (66) | LOC: EMS 15:45 | PROVIDERS: ATTEND Surgery | DX: R41.82 Altered mental status, unspecified (principal); R47.81 Slurred speech | CPT/HCPCS: A0425; A0429 ==

== ENCOUNTER 2020-04-01 16:02 | Observation (INO) | payer MEDICARE, OTHER ==
--- NOTE | 2020-04-01 16:29 | ED Physician Documentation ---
PD HPI FOCAL NEURO - Stated complaint Stated Complaint: AMS - Chief complaint Chief Complaint: Neuro - History obtained from History obtained from: Patient, Family, EMS - History of Present Illness Timing - onset: Today Timing - duration: Other (unknown) Timing - details: Now resolved Time of symptom onset unknown: Time of onset unknown Weakness: No: Face, Arm, Hand, Leg, Foot, Right, Left Numbness: No: Face, Arm, Hand, Leg, Foot, Right, Left Associated symptoms: No: Headache, Nausea / vomiting, Seizure, Syncope, Fall, Head injury, Chest pain, Neck pain, Back pain, Fever Contributing factors: negative: Anticoagulated Baseline status: positive: A&OX3, ambulatory, indep - Additional information Additional information: expressive aphasia today. unknown how long this lasted. No history of strokes or TIA. She is acting normally now. She was not having difficulty with memory, just getting the words out. Review of Systems Ten Systems: 10 systems reviewed and negative Constitutional: denies: Fever, Chills Ears: denies: Ear pain Nose: denies: Rhinorrhea / runny nose, Congestion GI: denies: Nausea, Vomiting, Diarrhea Skin: denies: Rash Musculoskeletal: denies: Neck pain, Back pain Neurologic: denies: Focal weakness, Numbness, Seizure, Headache PD PAST MEDICAL HISTORY - Past Medical History Past Medical History: Yes Cardiovascular: None Respiratory: Asthma Endocrine/Autoimmune: Other GI: Chronic constipation : Incontinence HEENT: None Psych: Depression Musculoskeletal: Gout Derm: Rosacea - Past Surgical History Past Surgical History: No - Present Medications Home Medications: Ambulatory Orders Medication Instructions Recorded Confirmed Dexlansoprazole [Dexilant] 60 mg PO DAILY 12/31/16 05/10/17 Escitalopram Oxalate [Lexapro] 20 mg PO DAILY 12/31/16 05/10/17 Fluticasone/Salmeterol [Advair 1 each IH BID 12/31/16 05/10/17 250-50 Diskus] Fluticasone/Salmeterol [Advair 1 puffs INH BID 12/31/16 05/10/17 250-50 Diskus] Linaclotide [Linzess] 145 mcg PO DAILY 12/31/16 05/10/17 Montelukast [Singulair] 10 mg PO QPM 12/31/16 05/10/17 Naratriptan HCl [Amerge] 2.5 mg PO ONCE PRN 12/31/16 05/10/17 Tolterodine Tartrate [Tolterodine 4 mg PO DAILY 12/31/16 05/10/17 Tartrate ER] allopurinoL [Allopurinol] 300 mg PO DAILY 12/31/16 05/10/17 Hydroxyurea [Hydrea] 500 mg PO .TIW 01/02/17 05/10/17 Azithromycin [Zithromax] 250 mg PO DAILY #4 tablet 05/10/17 Oxycodone HCl/Acetaminophen 1 - 2 tab PO Q4H PRN #10 tablet 05/10/17 [Percocet 5-325 mg Tablet] - Allergies Allergies/Adverse Reactions: Allergies Allergy/AdvReac Type Severity Reaction Status Date / Time erythromycin base Allergy Unknown Verified 04/01/20 16:23 lidocaine Allergy Unknown Verified 04/01/20 16:23 NSAIDS (Non-Steroidal Allergy Unknown Verified 04/01/20 16:23 Anti-Inflamma orphenadrine Allergy Unknown Verified 04/01/20 16:23 Penicillins Allergy Edema Verified 04/01/20 16:23 Sulfa (Sulfonamide Allergy Unknown Verified 04/01/20 16:23 Antibiotics) - Social History Does the pt smoke?: No Smoking Status: Never smoker Does the pt drink ETOH?: No Does the pt have substance abuse?: No - Immunizations Immunizations: TDAP >10years/unknown - POLST Patient has POLST: No POLST Status: Full Code PD ED PE NORMAL - Vitals Vital signs reviewed: Yes - General General: Alert and oriented X 3, No acute distress, Well developed/nourished - HEENT HEENT: PERRL, EOMI, Moist mucous membranes, Pharynx benign - Neck Neck: Supple, no meningeal sign - Cardiac Cardiac: RRR, Strong equal pulses - Respiratory Respiratory: No respiratory distress, Clear bilaterally - Abdomen Abdomen: Soft, Non tender, Non distended - Back Back: No spinal TTP - Derm Derm: Warm and dry - Extremities Extremities: No edema, No calf tenderness / cord - Neuro Neuro: Alert and oriented X 3, neurological physiotherapist 2-12 intact, No motor deficit, No sensory deficit, Normal speech Eye Opening: Spontaneous Motor: Obeys Commands Verbal: Oriented GCS Score: 15 - Psych Psych: Normal mood, Normal affect NIHSS - Time Time: 16:25 - Level of Consciousness Level of consciousness: (0) Alert, Keenly responsive LOC Questions: (0) Answers both Q's correct LOC Commands: (0) Performs both correctly - Gaze Best Gaze: (0) Normal - Visual Visual: (0) No loss - Facial Palsy Facial Palsy: (0) Normal, symmetrical movement - Motor Arms (both separate) Motor Arm (right): (0) No drift Motor Arm (left): (0) No drift - Motor Legs (both separate) Motor Leg (right): (0) No drift Motor Leg (left): (0) No drift - Limb Ataxia Limb Ataxia: (0) Absent - Sensory Sensory: (0) Normal - Best Language Best Language: (0) No aphasia - Dysarthria Dysarthria: (0) Normal - Extinction and Inattention (formally neg Extinction and inattention: (0) No abnormality - Total Score/Results Total Score/Result: 0 Results - Vitals Vitals: Vital Signs - 24 hr 04/01/20 04/01/20 04/01/20 16:10 16:23 18:23 Temperature 37 C Heart Rate 77 78 75 Respiratory 16 16 16 Rate Blood Pressure 118/65 141/69 H 117/65 O2 Saturation 99 98 98 Oxygen O2 Source Room air - EKG (time done) 1711 Rate: Rate (enter#) (74) Rhythm: NSR Stowell: Normal Intervals: Normal OH QRS: Normal Ischemia: Non specific changes - Labs Labs: Laboratory Tests 04/01/20 04/01/20 04/01/20 16:37 16:37 16:37 WBC 12.3 H RBC 4.98 Hgb 10.5 L Hct 38.3 MCV 76.9 L MCH 21.1 L MCHC 27.4 L RDW 22.4 H Plt Count 405 MPV TNP Neut # (Auto) 8.7 H Lymph # (Auto) 2.0 Charlton # (Auto) 0.5 Eos # (Auto) 0.7 Baso # (Auto) 0.4 H Absolute Nucleated RBC 0.00 Band Neuts % (Manual) Not Reportable Abnorm Lymph % (Manual) Not Reportable Nucleated RBC % 0.0 Neutrophils # (Manual) Not Reportable Lymphocytes # (Manual) Not Reportable Monocytes # (Manual) Not Reportable Eosinophils # (Manual) Not Reportable Basophils # (Manual) Not Reportable Differential Comment MANUAL=AUTO DIFF Manual Slide Review Indicated Platelet Estimate NORMAL (130-450,000) Platelet Morphology NORMAL APPEARANCE RBC Morph Micro Appear 1+ SCHISTOCYTES Sodium 132 L Potassium 4.0 Chloride 99 L Carbon Dioxide 25 Anion Gap 8.0 BUN 13 Creatinine 1.0 Estimated GFR (MDRD) 55 L Glucose 97 Calcium 9.1 Total Bilirubin 0.8 AST 20 ALT 11 Alkaline Phosphatase 58 Total Protein 7.1 Albumin 4.3 Globulin 2.8 Albumin/Globulin Ratio 1.5 Lipase 40 Urine Color YELLOW Urine Clarity CLEAR Urine pH 7.0 Ur Specific Clubb 1.015 Urine Protein NEGATIVE Urine Glucose (UA) NEGATIVE Urine Ketones NEGATIVE Urine Occult Blood NEGATIVE Urine Nitrite NEGATIVE Urine Bilirubin NEGATIVE Urine Urobilinogen 0.2 (NORMAL) Ur Leukocyte Esterase TRACE H Urine RBC 0-5 Urine WBC 0-3 Ur Squamous Epith Cells FEW Squamous Urine Bacteria Many H Ur Microscopic Review INDICATED Urine Culture Comments INDICATED - Rads (name of study) ct head Radiology: Prelim report reviewed, EMP read contemporaneously, See rad report (No acute intracranial abnormality) PD MEDICAL DECISION MAKING - ED course Complexity details: reviewed results, re-evaluated patient, considered differential, d/w patient, d/w family, d/w [employer] operations consultant ED course: Patient with what appears to have been a TIA today. She had expressive aphasia earlier, now resolved. We will place the patient in observation for further evaluation and care. Discussed the case with Dr. Kerr, hospitalist who accepts. This document was made in part using voice recognition software. While efforts are made to proofread this document, sound alike and grammatical errors may occur. Departure - Departure Disposition: ED Place in Observation Clinical Impression: TIA (transient ischemic attack) UTI (urinary tract infection) Qualifiers: Urinary tract infection type: acute cystitis Hematuria presence: without xenia turia Qualified Code(s): N30.00 - Acute cystitis without hematuria Condition: Stable Discharge Date/Time: 04/01/20 20:10
[2020-04-01 16:43] LABS: BASOPHILS # (AUTO) 0.4 10^3/uL (0.0-0.1); BASOPHILS % (AUTO) 2.9 %; EOSINOPHILS # (AUTO) 0.7 10^3/uL (0.0-0.7); EOSINOPHILS % (AUTO) 5.3 %; HGB - HEMOGLOBIN 10.5 g/dL (12.0-16.0); LYMPHOCYTES % (AUTO) 16.2 %; MEAN CORPUSCULAR HEMOGLOBIN 21.1 pg (27.0-31.0); MEAN CORPUSCULAR HGB CONC 27.4 g/dL (32.0-36.0); MEAN CORPUSCULAR VOLUME 76.9 fL (81.0-99.0); MONOCYTES # (AUTO) 0.5 10^3/uL (0.0-1.0); MONOCYTES % (AUTO) 4.1 %; NEUTROPHILS # (AUTO) 8.7 10^3/uL (1.5-6.6); NEUTROPHILS % (AUTO) 70.7 %; PLT - PLATELET COUNT 405 10^3/uL (130-450); RED BLOOD COUNT 4.98 10^6/uL (4.20-5.40); RED CELL DISTRIBUTION WIDTH 22.4 % (12.0-15.0); WHITE BLOOD COUNT 12.3 x10^3/uL (4.8-10.8)
[2020-04-01 16:51] LABS: BILIRUBIN,URINE NEGATIVE (NEGATIVE); GLUCOSE, URINE (UA) NEGATIVE (NEGATIVE); KETONES,URINE (UA) NEGATIVE (NEGATIVE); LEUKOCYTE ESTERASE, URINE TRACE (NEGATIVE); NITRITE,URINE NEGATIVE (NEGATIVE); OCCULT BLOOD,URINE NEGATIVE (NEGATIVE); PROTEIN,URINE NEGATIVE (NEGATIVE); UROBILINOGEN,URINE 0.2 (NORMAL) E.U./dL (NORMAL)
[2020-04-01 16:52] LABS: CLARITY,URINE CLEAR (CLEAR)
[2020-04-01 16:55] LABS: ALBUMIN 4.3 g/dL (3.2-5.5); ALBUMIN/GLOBULIN RATIO 1.5 (1.0-2.2); BILIRUBIN,TOTAL 0.8 mg/dL (0.2-1.0); CALCIUM 9.1 mg/dL (8.5-10.3); TOTAL PROTEIN 7.1 g/dL (6.7-8.2)
[2020-04-01 17:05] LABS: BACTERIA,URINE Many /HPF (None Seen); RBC,URINE 0-5 /HPF (0-5); SQUAMOUS EPITHELIAL CELL,UR FEW Squamous (<= Few)
--- NOTE | 2020-04-01 17:13 | CT Report ---
PROCEDURE: HEAD WO INDICATIONS: expressive aphasia, resolved TECHNIQUE: Noncontrast 4.5 mm thick angled axial sections acquired from the foramen magnum to the vertex. For r adiation dose reduction, the following was used: automated exposure control, adjustment of mA and/or kV according to patient size. COMPARISON: None. FINDINGS: Image quality: Excellent. CSF spaces: Basal cisterns are patent. No extra-axial fluid collections. The ventricles are symmet tamiko in size and shape. Brain: No intracranial bleeds or masses. There is cerebral volume loss for age, with resultant vent ricular and sulcal prominence. There are periventricular and deep white matter chronic small vessel ischemic changes. There is intracranial internal carotid artery atherosclerosis. Skull and face: Calvarium and visualized facial bones appear intact, without suspicious lesions. Sinuses: Visualized sinuses and mastoids are clear. IMPRESSION: 1. No CT evidence of acute intracranial pathology. 2. Age-appropriate atrophy and mild to moderate white matter chronic small vessel ischemic changes. Reviewed by: Raimundo Alberts MD on 04/01/2020 5:12 PM PDT Approved by: Raimundo Alberts MD on 04/01/2020 5:12 PM PDT Station ID: [id number]
[2020-04-01 17:37] LABS: PLATELET ESTIMATE, MANUAL NORMAL (130-450,000) (NORMAL); PLATELET MORPHOLOGY NORMAL APPEARANCE (NORMAL)
[2020-04-01 17:39] LABS: DIFFERENTIAL COMMENT MANUAL=AUTO DIFF
[2020-04-01] MEDS ORDERED: NITROFURANTOIN MACRO 100 MG CAPSULE PO STA (17:43)
[2020-04-01] MEDS ORDERED: ONDANSETRON 4 MG/2 ML VIAL IVP PRN (19:31)
[2020-04-01] MEDS ORDERED: SODIUM CHLORIDE FLUSH 0.9% 10 ML SYRINGE IVP PRN (19:31)
[2020-04-01] MEDS ORDERED: ACETAMINOPHEN 325 MG TABLET PO PRN (19:31)
[2020-04-01] MEDS ORDERED: ASPIRIN CHEW 81 MG TABLET PO STA (19:40)
--- NOTE | 2020-04-01 19:40 | HISTORY & PHYSICAL EXAMINATION ---
Chief Complaint - Chief Complaint Chief Complaint: Difficulty speaking History of Present Illness - Admitted From Admitted From:: Home - History Obtained From Records Reviewed: Yes History obtained from: Patient, Daughter, ER Physician, EMR - History of Present Illness HPI Comment/Other: This is a 70-year-old female with a past medical history significant for migraines, asthma, polycythemia vera who presents today complaining of difficulty speaking. She reports her symptoms began at around 2:30 PM and had resolved by about 4 PM. She went to go speak with her daughter at 2:30 PM when she states she difficulty saying the words that she wanted. Her speech was stuttered and her words were fumbled. Her sister also noticed that her speech was quite off. There was no facial droop noticed. EMS was immediately called after the development of the symptoms. She reports no associated weakness of her upper extremities. She states she did have a migraine with an aura about an hour prior to the onset of the aphasia. She states she has had migraines for years and takes naratriptan. She takes about 9 tablets a month. She reports no prior history of strokes or TIAs. Denies any previous symptoms of a stroke. She currently reports feeling back to her baseline. She felt like her upper extremities were a little bit more numb than usual when she did have this episode of expressive aphasia. She does take a baby aspirin a day. Denies a h istory of diabetes, hypertension, hyperlipidemia, smoking. She states she did undergo endoscopy this past due to heartburn and weight loss and she reportedly had some sort of dilation and there was also a polyp noticed. This was done at [facility]. She currently reports no chest pain but states she has had some chest discomfort on and off. She also denies any dysuria, urgency, frequency. She reports a prior history of urinary tract infections and she normally has dysuria when she does have an infection. In the emergency department, she underwent a CT of the head which was un remarkable. Her labs are unremarkable except for sodium of 132. Urinalysis revealed trace leukocyte esterase and many bacteria. Given the above findings, medicine was consulted for admission. I did discuss goals of care with the patient and she would like to be a full code. History - Past Medical History Cardiovascular: reports: None Respiratory: reports: Asthma Neuro: reports: Migraines GI: reports: Chronic constipation : reports: Incontinence HEENT: reports: None Psych: reports: Depression Musculoskeletal: reports: Gout Derm: reports: Rosacea MRSA Hx?: No Other Past Medical History: Polycythemia vera. - Family & Social History Family History Comment/Other: Her mother at the age of 101 from breast cancer. Her father had a history of rheumatic fever. He passed suddenly in his early 70s of an unclear cause but she reports he had multiple cardiac problems. Living arrangement: At home Living Situation: With family Social History Notes: She lives in [place] with her sister, [id number], nephew. She is and her about 14 years ago. She denies any smoking or alcohol use. She retired about 1 year ago after she previously worked for her 's [employer] company. - Substance History Use: Uses substance without health or social issues: NONE - POLST Patient has POLST: No POLST Status: Full Code Meds/Allgy - Home Medications Home Medications: Ambulatory Orders Medication Instructions Recorded Confirmed Dexlansoprazole [Dexilant] 60 mg PO DAILY 12/31/16 05/10/17 Escitalopram Oxalate [Lexapro] 20 mg PO DAILY 12/31/16 05/10/17 Fluticasone/Salmeterol [Advair 1 each IH BID 12/31/16 05/10/17 250-50 Diskus] Fluticasone/Salmeterol [Advair 1 puffs INH BID 12/31/16 05/10/17 250-50 Diskus] Linaclotide [Linzess] 145 mcg PO DAILY 12/31/16 05/10/17 Montelukast [Singulair] 10 mg PO QPM 12/31/16 05/10/17 Naratriptan HCl [Amerge] 2.5 mg PO ONCE PRN 12/31/16 05/10/17 Tolterodine Tartrate [Tolterodine 4 mg PO DAILY 12/31/16 05/10/17 Tartrate ER] allopurinoL [Allopurinol] 300 mg PO DAILY 12/31/16 05/10/17 Hydroxyurea [Hydrea] 500 mg PO .TIW 01/02/17 05/10/17 Azithromycin [Zithromax] 250 mg PO DAILY #4 tablet 05/10/17 Oxycodone HCl/Acetaminophen 1 - 2 tab PO Q4H PRN #10 tablet 05/10/17 [Percocet 5-325 mg Tablet] - Allergies Allergies/Adverse Reactions: Allergies Allergy/AdvReac Type Severity Reaction Status Date / Time erythromycin base Allergy Unknown Verified 04/01/20 16:23 lidocaine Allergy Unknown Verified 04/01/20 16:23 NSAIDS (Non-Steroidal Allergy Unknown Verified 04/01/20 16:23 Anti-Inflamma orphenadrine Allergy Unknown Verified 04/01/20 16:23 Penicillins Allergy Edema Verified 04/01/20 16:23 Sulfa (Sulfonamide Allergy Unknown Verified 04/01/20 16:23 Antibiotics) Review of Systems - Constitutional Constitutional: denies: Fatigue, Fever, Chills, Weakness - Eyes Eyes: denies: Blurred vision - Ears, Nose & Throat Ears, Nose & Throat: denies: Nasal discharge, Nasal congestion - Cardiovascular Cariovascular: denies: Chest pain, Lightheadedness, Exertional dyspnea, Decr. exercise tolerance - Respiratory Respiratory: denies: SOB at rest, SOB with exertion - Gastrointestinal Gastrointestinal: denies: Abdominal pain, Nausea, Vomiting - Genitourinary Genitourinary: denies: Dysuria, Frequency, Urgency - Musculoskeletal Musculoskeletal: denies: Muscle pain, Limited range of motion, Muscle weakness - Integumentary Integumentary: denies: Rash - Neurological Neurological: reports: Headache, Numbness, Slurred speech. denies: General weakness, Focal weakness, Dizziness - Endocrine Endocrine: denies: Polyuria - Hematologic/Lymphatic Hematologic/Lymphatic: denies: Anemia - All Other Systems All Other Systems: reports: Reviewed and negative Prior Level of Functionality: She is independent with her ADLs. Exam - Vital Signs Reviewed Vital Signs: Yes Vital Signs: Vital Signs x48h Temp Pulse Resp BP Pulse Ox 04/01/20 18:23 75 16 117/65 98 04/01/20 16:23 78 16 141/69 H 98 04/01/20 16:10 37 C 77 16 118/65 99 - Physical Exam General Appearance: positive: No acute distress, Alert Eyes Bilateral: positive: Normal inspection, EOMI, Conjunctivae nml ENT: positive: ENT inspection nml Neck: positive: Nml inspection Respiratory: positive: No respiratory distress. negative: Wheezes, Rales Cardiovascular: positive: Regular rate & rhythm, No murmur. negative: Tachycardia, Systolic murmur Abdomen: positive: Non-tender, No distention. negative: Tenderness, Guarding, Rebound Skin: positive: No rash, Warm, Dry Extremities: positive: Full ROM, No pedal edema Neurologic/Psychiatric: positive: Oriented x3, CN's nml (2-12), Motor nml, Sensation nml. negative: Disoriented to person, Disoriented to place, Dis oriented to time, Facial droop, Slurred/abnml speech Conclusion/Plan - Problem List (1) Expressive aphasia Conclusion/Plan: Presented with expressive aphasia which has since resolved. This could be TIA or hemiplegic migraine. Imaging has been unremarkable. We will give her aspirin 325 mg x 1 and continue her on daily aspirin 81 mg and Lipitor 40mg. We will obtain a CT angiogram of the head and neck. Check echocardiogram. Monitor on telemetry. Obtain MRI of the brain. Check A1c and lipid panel. Neurochecks. (2) Migraine Conclusion/Plan: History of migraines for which she takes naratriptan as needed. She reports a migraine with aura just prior to the onset of her expressive aphasia. As mentioned above, this may potentially be a cause of her expressive aphasia but will need to rule out TIA. Will place her on sumatriptan as needed during this hospitalization. Qualifiers: Migraine type: with aura Status migrainosus presence: without status migrainosus (3) Hyponatremia Conclusion/Plan: Her sodium is 132 on admission. This is likely hypovolemic hyponatremia. We will start her on normal saline and recheck sodium in the morning. (4) Polycythemia vera Conclusion/Plan: Stable. Continue home hydroxyurea with next dose being on Wednesday. (5) Asthma Conclusion/Plan: Stable and not in exacerbation. Continue home medications. (6) Asymptomatic bacteriuria Conclusion/Plan: We will hold off on continuing antibiotics as this is likely asymptomatic bacteriuria given her lack of symptoms. - Lab Results Lab results reviewed: Yes Fish Bones: 04/01/20 16:37 04/01/20 16:37 - Diagnostic Imaging Results Diagnostic Imaging Results: positive: Final report reviewed - EKG Results EKG Interpreted Independently: Yes Core Measures - Anticipated LOS I expect patient to be DC'd or transferred within 96 hours.: Yes - Issues Hospital Issues and Management Plan: 70-year-old female who presents with expressive aphasia which has since resolved. Concern is for TIA. Will place in observation for telemetry, echo, MRI. - DVT/VTE - Prophylaxis VTE/DVT Device ordered at admit?: Yes VTE/DVT Prophylaxis med ordered at admit?: Yes
--- NOTE | 2020-04-01 19:41 | HISTORY & PHYSICAL EXAMINATION ---
History - Past Medical History Cardiovascular: reports: None Respiratory: reports: Asthma Endocrine/Autoimmune: reports: Other GI: reports: Chronic constipation : reports: Incontinence HEENT: reports: None Psych: reports: Depression Musculoskeletal: reports: Gout Derm: reports: Rosacea MRSA Hx?: No - Family & Social History Social History Notes: Patient lives in [place] with her sister. She is . She has one daughter who lives in [place] and 2 grandkids. - Substance History Use: Uses substance without health or social issues: NONE - POLST Patient has POLST: No POLST Status: Full Code Meds/Allgy - Home Medications Home Medications: Ambulatory Orders Medication Instructions Recorded Confirmed Dexlansoprazole [Dexilant] 60 mg PO DAILY 12/31/16 05/10/17 Escitalopram Oxalate [Lexapro] 20 mg PO DAILY 12/31/16 05/10/17 Fluticasone/Salmeterol [Advair 1 each IH BID 12/31/16 05/10/17 250-50 Diskus] Fluticasone/Salmeterol [Advair 1 puffs INH BID 12/31/16 05/10/17 250-50 Diskus] Linaclotide [Linzess] 145 mcg PO DAILY 12/31/16 05/10/17 Montelukast [Singulair] 10 mg PO QPM 12/31/16 05/10/17 Naratriptan HCl [Amerge] 2.5 mg PO ONCE PRN 12/31/16 05/10/17 Tolterodine Tartrate [Tolterodine 4 mg PO DAILY 12/31/16 05/10/17 Tartrate ER] allopurinoL [Allopurinol] 300 mg PO DAILY 12/31/16 05/10/17 Hydroxyurea [Hydrea] 500 mg PO .TIW 01/02/17 05/10/17 Azithromycin [Zithromax] 250 mg PO DAILY #4 tablet 05/10/17 Oxycodone HCl/Acetaminophen 1 - 2 tab PO Q4H PRN #10 tablet 05/10/17 [Percocet 5-325 mg Tablet] - Allergies Allergies/Adverse Reactions: Allergies Allergy/AdvReac Type Severity Reaction Status Date / Time erythromycin base Allergy Unknown Verified 04/01/20 16:23 lidocaine Allergy Unknown Verified 04/01/20 16:23 NSAIDS (Non-Steroidal Allergy Unknown Verified 04/01/20 16:23 Anti-Inflamma orphenadrine Allergy Unknown Verified 04/01/20 16:23 Penicillins Allergy Edema Verified 04/01/20 16:23 Sulfa (Sulfonamide Allergy Unknown Verified 04/01/20 16:23 Antibiotics) Exam - Vital Signs Vital Signs: Vital Signs x48h Temp Pulse Resp BP Pulse Ox 04/01/20 18:23 75 16 117/65 98 04/01/20 16:23 78 16 141/69 H 98 04/01/20 16:10 37 C 77 16 118/65 99 Conclusion/Plan - Lab Results Fish Bones: 04/01/20 16:37 04/01/20 16:37
[2020-04-01] MEDS ORDERED: IOVERSOL 320 100 ML VIAL IVP ONE ×2 (19:48→20:21)
--- NOTE | 2020-04-01 20:35 | CT Report ---
PROCEDURE: ANGIO HEAD W/WO INDICATIONS: Neurologic deficit CONTRAST: IV CONTRAST: Optiray 320 ml: 80 PO CONTRAST: *NO PO CONTRAST TECHNIQUE: Precontrast 4.5 mm thick angled axial sections acquired from the foramen magnum to the vertex. Afte r the administration of intravenous contrast, 1 mm thick sections acquired through the [place] of [place] is. Postcontrast 4.5 mm thick sections then re-acquired from the foramen magnum to the vertex. 3-di mensional [id number] (MIP) and/or volume rendering reformats were acquired of the c entral intracranial vasculature. For radiation dose reduction, the following was used: automated ex posure control, adjustment of mA and/or kV according to patient size. COMPARISON: Head CT 04/01/2020 FINDINGS: Image quality: Excellent. Anterior circulation: No flow-limiting stenosis or occlusion of the intracranial internal carotid art eries, the anterior cerebral arteries, middle cerebral arteries. Anterior communicating artery is pre sent and appears patent. Posterior circulation: No flow-limiting stenosis or occlusion of the distal V4 segments or the basila r artery. Posterior cerebral arteries appear widely patent. IMPRESSION: No evidence of large vessel occlusion or flow-limiting stenosis involving the major intracranial nohemi rial circulation. Reviewed by: Aries Méndez MD on 04/01/2020 8:34 PM PDT Approved by: Aries Méndez MD on 04/01/2020 8:34 PM PDT Station ID: [id number]
[2020-04-01] MEDS ORDERED: ATORVASTATIN 40 MG TABLET PO SCH (21:00)
[2020-04-01] MEDS ORDERED: SODIUM CHLORIDE 0.9% 1,000 ML IV SCH (23:00)
[2020-04-01] MEDS ORDERED: SUMAtriptan 25 MG TABLET PO PRN (23:00)
[2020-04-01] MEDS: SODIUM CHLORIDE FLUSH 0.9% 10 ML SYRINGE IVP SCH (23:20)
[2020-04-02] MEDS ORDERED: SODIUM CHLORIDE FLUSH 0.9% 10 ML SYRINGE IVP SCH (01:00)
[2020-04-02 05:47] LABS: BASOPHILS % (AUTO) 3.2 %; HGB - HEMOGLOBIN 10.2 g/dL (12.0-16.0); LYMPHOCYTES % (AUTO) 16.5 %; MEAN CORPUSCULAR HEMOGLOBIN 20.7 pg (27.0-31.0); MEAN CORPUSCULAR HGB CONC 27.3 g/dL (32.0-36.0); NEUTROPHILS % (AUTO) 69.2 %; PLT - PLATELET COUNT 333 10^3/uL (130-450); RED BLOOD COUNT 4.92 10^6/uL (4.20-5.40); RED CELL DISTRIBUTION WIDTH 22.1 % (12.0-15.0); WHITE BLOOD COUNT 9.4 x10^3/uL (4.8-10.8)
[2020-04-02 05:50] LABS: ABNORMAL LYMPHS % (MANUAL) 0 %; BAND NEUTROPHILS % (MANUAL) 0 %
[2020-04-02 06:09] LABS: BUN - BLOOD UREA NITROGEN 12 mg/dL (6-20); CALCIUM 8.8 mg/dL (8.5-10.3); CARBON DIOXIDE - CO2 26 mmol/L (21-32); CHLORIDE 106 mmol/L (101-111); CHOL/HDL RATIO 3.9 (<4.4); CHOLESTEROL 146 mg/dL; GLUCOSE 100 mg/dL (70-100); HDL CHOLESTEROL 37 mg/dL; LDL CHOLESTEROL,CALCULATED 91 mg/dL; LDL/HDL RATIO 2.5 (<4.4); PHOSPHORUS 4.5 mg/dL (2.5-4.6); SODIUM 137 mmol/L (135-145); VLDL CHOLESTEROL 18 mg/dL
[2020-04-02 06:10] LABS: HB2 TOTAL 10.4 g/dL; HEMOGLOBIN A1C 0.3 g/dL; HEMOGLOBIN A1C % 4.8 % (4.6-6.2)
[2020-04-02 06:29] LABS: BASOPHILS # (MANUAL) 0.5 10^3/uL (0-0.1); BASOPHILS % (MANUAL) 5 %; EOSINOPHILS # (MANUAL) 0.4 10^3/uL (0-0.7); LYMPHOCYTES # (MANUAL) 2.1 10^3/uL (1.5-3.5); LYMPHOCYTES % (MANUAL) 22 %; MONOCYTES # (MANUAL) 0.1 10^3/uL (0.0-1.0)
[2020-04-02 06:32] LABS: DIFFERENTIAL COMMENT MANUAL DIFFERENTIAL; PLATELET ESTIMATE, MANUAL NORMAL (130-450,000) (NORMAL); PLATELET MORPHOLOGY 1+ LARGE PLATELETS (NORMAL)
[2020-04-02] MEDS: SODIUM CHLORIDE FLUSH 0.9% 10 ML SYRINGE IVP SCH (08:59)
[2020-04-02] MEDS ORDERED: ENOXAPARIN 40 MG/0.4 ML SYRINGE SUBQ SCH ×2 (09:00)
[2020-04-02] MEDS ORDERED: ASPIRIN EC 81 MG TABLET PO SCH ×2 (09:00)
--- NOTE | 2020-04-02 11:04 | PHARMACY PROGRESS NOTE ---
- Best Possible Medication History Admit Date and Time: 04/01/201930 Processed by: Pharmacy Medication History completed: Yes Patient Interview: Completed Secondary Source(s): Pharmacy records, Insurance records (PATIENT INTERVIEWED BY GAS ATTENDANT. PATIENT ABLE TO CONFIRM MEDICATIONS ) As the person ultimately responsible for medication therapy, providers are able to order a medication from an existing home medication list in [facility] via the "Reconcile Routine" prior to Confirmation of that medication by child support officer. Such practice is discouraged except when the physician, in their clinical judgment, deems that a medical need exists for a medication without regard to previous use.
[2020-04-02] MEDS ORDERED: NON FORMULARY MED (Fluticasone/Salmeterol [Advair 250-50 Diskus] 1 PUFFS) INH SCH (11:15)
--- NOTE | 2020-04-02 11:15 | MRI Report ---
PROCEDURE: Brain W/O INDICATIONS: Neuro deficit. Resolved. TECHNIQUE: Noncontrast axial T1 spin echo, axial T2 fast spin echo, sagittal and axial FLAIR, coronal T2 fast sp in echo, axial gradient echo, axial diffusion and ADC through the brain. COMPARISON: CT examinations dated 04.01.20 FINDINGS: Image quality: Excellent. CSF Spaces: Basal cisterns are patent. No extra-axial fluid collections. Ventricles are normal in size and shape. Brain: No intracranial hemorrhage. Mild diffuse cerebral volume loss. Within the left parietal periv entricular and subcortical white matter, there is a 32 mm diameter region of elevated FLAIR signal wh ich demonstrates a smaller internal region of elevated diffusion and predominantly elevated ADC map s ignal. However, there is curvilinear low ADC map signal within the central aspect of the lesion. Ther e is a mild degree of patchy high FLAIR signal within the periventricular and subcortical white matte r. Within the left posterior superior frontal subcortical white matter, there is a 23 mm region of il l-defined FLAIR signal elevation. Brainstem appears normal. Normal intravascular flow voids are pres ent. Skull and face: Calvarium has normal marrow signal. Orbits appear normal. Sinuses: Sinuses and mastoids are clear. IMPRESSION: 1. No acute intracranial abnormality. No acute infarction. 2. Elevated FLAIR signal intensity foci within the left frontal and parietal lobe as described above. Differential considerations for these lesions include late subacute infarcts versus small vessel isc hemic disease versus demyelinating disorders such as multiple sclerosis. Clinical correlation recomme nded. Follow-up brain MRI with and without intravenous contrast in roughly 3 months is recommended to exclude the less likely possibility of underlying neoplasm. 3. Volume loss and small vessel ischemic disease. Reviewed by: Cassidy Pollard MD on 04/02/2020 11:13 AM PDT Approved by: Cassidy Pollard MD on 04/02/2020 11:13 AM PDT Station ID: [id number]
[2020-04-02] MEDS ORDERED: ALBUTEROL NEB 2.5 MG/3 ML INH PRN (11:17)
[2020-04-02] MEDS ORDERED: BUDESONIDE 0.5 MG/2 ML NEB INH SCH (12:00)
--- NOTE | 2020-04-02 15:40 | CT Report ---
PROCEDURE: ANGIO NECK W INDICATIONS: Neuro deficit. CONTRAST: IV CONTRAST: Optiray 320 ml: 80 PO CONTRAST: *NO PO CONTRAST TECHNIQUE: After the administration of intravenous contrast, 1.5 mm axial sections acquired from the aortic arch to the [place] of [place]. Coronal 3-D maximum intensity projection (MIP) and/or volume rendering ref ormats were then performed. For radiation dose reduction, the following was used: automated exposur e control, adjustment of mA and/or kV according to patient size. COMPARISON: CT angioma head 04/01/2020, CT head 04/01/2020, MRI brain 04/02/2020. FINDINGS: Image quality: Excellent. Carotid system: The great vessels demonstrate a conventional anatomy as they arise from the aortic a rch. The origins of the common carotid arteries appear patent. The common carotid arteries demonstr ate normal calibers and courses. The bifurcation regions appear normal bilaterally. The internal ca rotid arteries demonstrate normal caliber and course. Posterior circulation: The origins of the vertebral arteries appear patent. The more superior porti ons of the vertebral arteries demonstrate normal course and caliber. They join to form a normal appe aring basilar artery. Soft tissues: Visualized neck soft tissues demonstrate no suspicious abnormalities. The thyroid gla nd demonstrates scattered subcentimeter low-attenuation foci bilaterally. Bones: No suspicious bony lesions. Visualized cervical spine appears normally aligned. IMPRESSION: There are no areas of hemodynamically significant stenosis, vascular occlusion or aneurysmal dilation within the neck vasculature. The estimate of stenosis included in the report of the imaging study was calculated using the NASCET method Reviewed by: Opal Rocha MD on 04/02/2020 3:39 PM PDT Approved by: Opal Rocha MD on 04/02/2020 3:39 PM PDT Station ID: [id number]
--- NOTE | 2020-04-02 16:15 | Discharge Plan ---
Discharge Plan Problem Reviewed?: Yes Disposition: Home, Self Care Condition: Stable Diet: Regular Activity Restrictions: Activity as Tolerated Shower Restrictions: No (fall precaution) Instruction Topics: TIA Health Concerns: TIA Plan of Treatment: your aphasia is resolved. PT/OT had evaluation and treatment for you. you have no more focal neurological deficits. Your image studies including CT of head, CTA of neck and brain, ECHO are unremarkable. MRI of brain indicate no acute stroke, and elevated FLAIR signal in your left frontal and pariental lobe, as you report you had this chronic condition, advise you have another MRI of brain without contrast study in 3 months and followup with neurologist. Care Goals: stabilization and improvement of your medical conditions. Assessment: discussed the care plan and image studies results with you and your daughter, you understood and agreed. Additional Instructions or Follow Up instructions: you may followup with your PCP in one to two weeks, followup with MRI of brain without contrast study in 3 months and followup with neurologist as out-pt. Should your symptoms return or worsen, you may present ER or call 911 for help. No Smoking: If you smoke, Please STOP! Call for help. Follow-up with: Iglesia Diaz MD [Primary Care Provider] -
--- NOTE | 2020-04-02 16:26 | DISCHARGE SUMMARY ---
Discharge Summary Admit Date: 04/01/20 Discharge Date: 04/02/20 Discharging Provider: Lizandro Davis Primary Care Provider: Iglesia Villalobos Condition at Discharge: Stable Discharge Disposition: 01 Home, Self Care Discharge Facility Name: home - DIAGNOSES Discharge Diagnoses with Status of Each Condition: (1) Expressive aphasia Resolved. Patient has a normal speech now. Patient had physical therapy and Occupational Therapy evaluation and treatment, patient has no other focal neurological deficit. Discussed the test results with the patient about Patient had CT of brain and CTA of brain and neck, echo all are unremarkable. MRI of the brain indicated no acute stroke but has elevated signal in left frontal and parietal lobe. Patient reported she had chronic lesion in her brain and she was followed up with by [facility] neurologist and [facility] neurologist. Advised the patient had an another MRI of the brain without contrast in 3 months per radiologist recommendation. (2) Migraine Chronic and stable (3) Hyponatremia Resolved. (4) Polycythemia vera Stable. (5) Asthma Stable (6) Asymptomatic bacteriuria hold off on continuing antibiotics as this is likely asymptomatic bacteriuria given her lack of symptoms. (7)chronic brain lesion Patient reported she had a chronic brain lesion, she was followed up by neurologist in [facility] and [facility]. Advised patient had an outpatient MRI of brain without contrast in 3 months and continue follow-up with neurologist as out-pt. - [facility] History of Present Illness: refer from Dr. Kerr's HPI on 04/01/2020 This is a 70-year-old female with a past medical history significant for rosendo tato, asthma, polycythemia vera who presents today complaining of difficulty speaking. She reports her symptoms began at around 2:30 PM and had resolved by about 4 PM. She went to go speak with her daughter at 2:30 PM when she states she difficulty saying the words that she wanted. Her speech was stuttered and her words were fumbled. Her sister also noticed that her speech was quite off. There was no facial droop noticed. EMS was immediately called after the development of the symptoms. She reports no associated weakness of her upper extremities. She states she did have a migraine with an aura about an hour prior to the onset of the aphasia. She states she has had migraines for years and takes naratriptan. She takes about 9 tablets a month. She reports no prior history of strokes or TIAs. Denies any previous symptoms of a stroke. She currently reports feeling back to her baseline. She felt like her upper extremities were a little bit more numb than usual when she did have this episode of expressive aphasia. She does take a baby aspirin a day. Denies a history of diabetes, hypertension, hyperlipidemia, smoking. She states she did undergo endoscopy this past due to heartburn and weight loss and she reportedly had some sort of dilation and there was also a polyp noticed. This was done at [facility]. She currently reports no chest pain but states she has had some chest discomfort on and off. She also denies any dysuria, urgency, frequency. She reports a prior history of urinary tract infections and she normally has dysuria when she does have an infection. In the emergency department, she underwent a CT of the head which was unremarkable. Her labs are unremarkable except for sodium of 132. Urinalysis revealed trace leukocyte esterase and many bacteria. Given the above findings, medicine was consulted for admission. I did discuss goals of care with the patient and she would like to be a full code. - HOSPITAL COURSE Hospital Course: Patient was admitted for aphasia and for evaluation TIA. Patient reported her symptoms Aphasia had only 30 to 45 minutes then resolved by her own. Patient has no other focal neurological deficits. Patient had physical therapist and occupational therapist evaluation and treatment, patient has no focal neuro deficits. CT of brain and CTA of brain and neck, echo all are unremarkable. MRI of the brain indicated no acute stroke but has elevated signal in left frontal and parietal lobe. Patient reported she had chronic lesion in her brain and she was followed up with by [facility] neurologist and [facility] neurologist. Advised the patient had an another MRI of the brain without contrast in 3 months per radiologist recommendation, Continue follow-up with her neurologist as out-pt. Patient was discharge as a stable condition - ALLERGIES Allergies/Adverse Reactions: Allergies Allergy/AdvReac Type Severity Reaction Status Date / Time erythromycin base Allergy Unknown Verified 04/01/20 16:23 lidocaine Allergy Unknown Verified 04/01/20 16:23 NSAIDS (Non-Steroidal Allergy Unknown Verified 04/01/20 16:23 Anti-Inflamma orphenadrine Allergy Unknown Verified 04/01/20 16:23 Penicillins Allergy Edema Verified 04/01/20 16:23 Sulfa (Sulfonamide Allergy Unknown Verified 04/01/20 16:23 Antibiotics) - MEDICATIONS Home Medications: Ambulatory Orders Medication Instructions Recorded Confirmed Escitalopram Oxalate [Lexapro] 30 mg PO DAILY 12/31/16 04/02/20 Fluticasone/Salmeterol [Advair 1 puffs INH BID 12/31/16 04/02/20 250-50 Diskus] Linaclotide [Linzess] 145 mcg PO DAILY 12/31/16 04/02/20 Montelukast [Singulair] 10 mg PO QPM 12/31/16 04/02/20 Naratriptan HCl [Amerge] 2.5 mg PO PRN PRN 12/31/16 04/02/20 Tolterodine Tartrate [Tolterodine 4 mg PO DAILY 12/31/16 04/02/20 Tartrate ER] allopurinoL [Allopurinol] 300 mg PO DAILY 12/31/16 04/02/20 Hydroxyurea [Hydrea] 500 mg PO .4X/WEEK 01/02/17 04/02/20 Aspirin [Aspirin EC] 81 mg PO DAILY 04/02/20 04/02/20 Dexlansoprazole [Dexilant] 60 mg PO BID 04/02/20 04/02/20 - PHYSICAL EXAM AT DISCHARGE General Appearance: positive: No acute distress, Alert. negative: Lethargic Eyes Bilateral: positive: Normal inspection, PERRL, No lid inflammation ENT: positive: ENT inspection nml, No signs of dehydration. negative: Purulent nasal drainage, Dry mucous membranes Neck: positive: Nml inspection, Thyroid nml, Trachea midline. negative: Thyr omegaly, Stiff neck, Tracheal deviation Respiratory: positive: Chest non-tender, No respiratory distress, Breath sounds nml. negative: Wheezes, Rales, Rhonchi Cardiovascular: positive: Regular rate & rhythm, No murmur, No gallop. negative: Tachycardia, Bradycardia, Systolic murmur, Diastolic murmur Peripheral Pulses: positive: 2+ Abdomen: positive: Non-tender, Nml bowel sounds, No distention. negative: Tenderness, Guarding, Rebound Back: positive: Nml inspection. negative: CVA tenderness (R), CVA tenderness (L) Skin: positive: Color nml, No rash, Warm, Dry. negative: Cyanosis, Diaphoresis, Pallor Extremities: positive: Non-tender, Full ROM, Nml appearance. negative: Calf tenderness, Alfredo's sign/cords Neurologic/Psychiatric: positive: Oriented x3, Motor nml, Sensation nml, Mood/affect nml. negative: Weakness, Sensory loss, Facial droop, Slurred/abnml speech, Depressed mood/affect - LABS Result Diagrams: 04/02/20 05:25 04/02/20 05:25 - FOLLOW UP Follow Up: your aphasia is resolved. PT/OT had evaluation and treatment for you. you have no more focal neurological deficits. Your image studies including CT of head, CTA of neck and brain, ECHO are unremarkable. MRI of brain indicate no acute stroke, and elevated FLAIR signal in your left frontal and pariental lobe, as you report you had this chronic condition, advise you have another MRI of brain without contrast study in 3 months and followup with neurologist. you may followup with your PCP in one to two weeks, followup with MRI of brain without contrast study in 3 months and followup with neurologist as out-pt. Should your symptoms return or worsen, you may present ER or call 911 for help. - TIME SPENT Time Spent in Discharge (Minutes): 30
[2020-04-02 16:35] VITALS: BP 115/52
[2020-04-02] MEDS ORDERED: MONTELUKAST 10 MG TABLET PO SCH (21:00)
[2020-04-03] MEDS ORDERED: TOLTERODINE LA 2 MG CAPSULE PO SCH (09:00)
[2020-04-03] MEDS ORDERED: HYDROXYUREA 500 MG CAPSULE PO SCH (09:00)
[2020-04-03] MEDS ORDERED: ESCITALOPRAM 10 MG TABLET PO SCH (09:00)
== END 2020-04-02 17:20 | disposition home or self-care (01) ==
LOC: EDUNIT# → ED 16:02 → MS2 19:31 → ED 20:01
PROVIDERS: ADMIT Internal Medicine; ATTEND Nurse Practitioner Gerontology
DX: R47.01 Aphasia (principal); G43.109 Migraine with aura, not intractable, without status migrainosus; E87.1 Hypo-osmolality and hyponatremia; D45 Polycythemia vera; J45.909 Unspecified asthma, uncomplicated; R82.71 Bacteriuria; G93.9 Disorder of brain, unspecified; Z79.82 Long term (current) use of aspirin; Z79.899 Other long term (current) drug therapy
CPT/HCPCS: 36415; 70450; 70496; 70498; 70551; 80048; 80053; 80061; 81001; 83036; 83690; 83735; 84100; 84484; 85025; 87086; 93005; 93306; 94640; 96360; 96361; 96372; 97161; 97165; 99283; 99285; A9270; G0378; J1650; J7626; Q9967; 81003; 83721

== ENCOUNTER 2022-06-09 08:00 | Outpatient (CLI) | payer MEDICARE, OTHER ==
--- NOTE | 2022-06-09 18:57 | XRAY Report ---
PROCEDURE: Chest 2 View X-Ray INDICATIONS: POST COVID-19 CONDITION AND COUGH TECHNIQUE: 2 view(s) of the chest. COMPARISON: 01/07/2017. FINDINGS: Surgical changes and devices: None. Lungs and pleura: No pleural effusions or pneumothorax. Lungs are clear. Mediastinum: Mediastinal contours are normal. Heart size is normal. Bones and chest wall: No suspicious bony abnormalities. Soft tissues appear unremarkable. IMPRESSION: No acute cardiopulmonary pathology. Reviewed by: Raimundo Alberts MD on 06/09/2022 6:56 PM PDT Approved by: Raimundo Alberts MD on 06/09/2022 6:56 PM PDT Station ID: [id number]
== END 2022-06-09 23:59 | disposition home or self-care (01) ==
LOC: DI.N 08:00
PROVIDERS: ATTEND Nurse Practitioner
DX: U09.9 Post COVID-19 condition, unspecified (principal); R05.9 Cough, unspecified

== ENCOUNTER 2024-04-03 17:23 | Outpatient (CLI) | payer MEDICARE, OTHER | END 2024-04-03 17:24 | disposition EMS.NT | LOC: EMS 17:23 | DX: R53.1 Weakness (principal) ==